=== PATIENT | female | born 1965 | race Caucasian/White ===

== ENCOUNTER 2018-04-12 13:50 | Emergency (ER) | payer MEDICAID ==
[~2018-04-12] VITALS: Ht 571.8 cm; Wt 100.0 kg
[~2018-04-12 13:50] MED LIST: ALBU8.5H8 IH; ASCO1TAB42 PO; CYAN250014 PO; DISU250T7 PO; GABA-532 PO; GEMF600T3 PO; LEVO100T PO; LORA10TA7 PO; LURA40TA3 PO; PANT40TA4 PO
[2018-04-12] MEDS ORDERED: normal saline 1000ML IV soln IVB ONE (14:10)
[2018-04-12 14:41] LABS: ALANINE AMINOTRANSFERASE 28 U/L (12-78); ALBUMIN 3.3 G/DL (3.4-5.0); ALBUMIN/GLOBULIN RATIO 0.9 (1.1-1.5); ALKALINE PHOSPHATASE 91 IU/L (46-116); ANION GAP 14 (8-16); ASPARTATE AMINO TRANSFERASE 76 U/L (10-37); BILIRUBIN,TOTAL 0.2 MG/DL (0.1-1.0); BLOOD UREA NITROGEN 19 MG/DL (7-18); BUN/CREATININE RATIO 19.6 (6.6-38.0); CALCIUM 8.9 MG/DL (8.5-10.1); CHLORIDE 99 MMOL/L (99-107); CREATININE 0.97 MG/DL (0.40-0.90); ETHANOL 0.117 GM/DL (0.0-0.010); GLUCOSE 94 MG/DL (70-104); POTASSIUM 3.1 MMOL/L (3.5-5.1); SODIUM 138 MMOL/L (135-145); TOTAL CARBON DIOXIDE 25.1 MMOL/L (24-32); TOTAL PROTEIN 7.1 G/DL (6.4-8.2); eGFR 60 ML/MIN
[2018-04-12 14:43] LABS: BASOPHILS % (AUTO) 0.3 % (0-1); EOSINOPHILS % (AUTO) 0.1 % (0-6); HEMATOCRIT 40.7 % (35.0-45.0); LYMPHOCYTES # (AUTO) 0.9 X10'3 (1.1-4.8); LYMPHOCYTES % (AUTO) 12.5 % (21-51); MEAN CORPUSCULAR HEMOGLOBIN 30.7 PG (27.0-31.0); MEAN CORPUSCULAR HGB CONC 34.5 % (33.0-36.5); MEAN CORPUSCULAR VOLUME 88.9 FL (78-98); MEAN PLATELET VOLUME 8.2 FL (7.4-10.4); MONOCYTES # (AUTO) 0.4 X10'3 (0-0.9); MONOCYTES % (AUTO) 5.5 % (2-12); NEUTROPHILS % (AUTO) 81.6 % (42-75); PLATELET COUNT 211 X10'3 (140-440); RED BLOOD COUNT 4.57 X10'6 (4.20-5.60); RED CELL DISTRIBUTION WIDTH 13.4 % (11.5-14.5); WHITE BLOOD COUNT 7.3 X10'3 (4.5-11.0)
[2018-04-12 15:15] LABS: CLARITY,URINE CLOUDY (Clear); COLOR,URINE YELLOW (Yellow); GLUCOSE, URINE NEGATIVE (Neg); KETONES,URINE NEGATIVE (Neg); LEUKOCYTE ESTERASE ,URINE LARGE (Neg); NITRITES, URINE POSITIVE (Neg); OCCULT BLOOD,URINE SMALL (Neg); PROTEIN,URINE TRACE mg/dl (Neg); UROBILINOGEN,URINE 0.2 E.U/dL (0.2-1.0)
[2018-04-12 15:16] LABS: UA COLLECTION TYPE STRAIGHT CATH
[2018-04-12 15:21] LABS: SQUAMOUS EPITHELIAL CELL,UR FEW /LPF (FEW); WBC,URINE TNTC /HPF (0-4)
[2018-04-12 15:22] LABS: BACTERIA,URINE 4+ /HPF (Neg)
[2018-04-12] MEDS ORDERED: potassium Cl oral solution 20 MEQ/15 ML PO ONE (15:25)
[2018-04-12] MEDS ORDERED: CefTRIAXone 2gm/D5W 50ml 50 ML IV ONE (15:25)
[2018-04-12 15:28] LABS: URINE AMPHETAMINE SCREEN NEGATIVE (Neg); URINE BARBITUATE SCREEN NEGATIVE (Neg); URINE BENZODIAZEPINES SCREEN POSITIVE (Neg); URINE CANNABINOID SCREEN NEGATIVE (Neg); URINE COCAINE SCREEN NEGATIVE (Neg); URINE METHADONE SCREEN NEGATIVE (Neg); URINE OPIATE SCREEN NEGATIVE (Neg); URINE PHENCYCLIDINE SCREEN NEGATIVE (Neg)
[2018-04-12] MEDS ORDERED: NITR100C6 PO (15:53)
[2018-04-12] MEDS ORDERED: proCHLORperazine 10 MG/2 ml inj IV ONE (16:15)
[2018-04-12 16:45] VITALS: BP 182/103
== END 2018-04-12 16:47 | disposition home or self-care (01) ==
LOC: ER 13:50
DX: R41.82 Altered mental status, unspecified (principal); F10.129 Alcohol abuse with intoxication, unspecified; N39.0 Urinary tract infection, site not specified; E87.6 Hypokalemia; G43.909 Migraine, unspecified, not intractable, without status migrainosus; E78.00 Pure hypercholesterolemia, unspecified; M19.90 Unspecified osteoarthritis, unspecified site; Z88.6 Allergy status to analgesic agent; Z88.8 Allergy status to other drugs, medicaments and biological substances; Z96.653 Presence of artificial knee joint, bilateral
CPT/HCPCS: 36415; 70450; 71045; 72125; 80053; 80305; 80320; 81001; 82140; 85025; 87077; 87088; 87186; 93005; 96365; 96375; 99285; A4353; J0696; J0780; J7030; 96361

== ENCOUNTER 2018-07-10 10:02 | Outpatient (CLI) | payer MEDICAID ==
[2018-07-10 10:01] VITALS: BP 139/76
[~2018-07-10 10:02] MED LIST changes: -GEMF600T3 PO; +GEMF600T4 PO; +HYDR-3965 PO; +NITR100C6 PO; +ONDA4TAB9 PO
== END 2018-07-10 10:42 | disposition home or self-care (01) ==
LOC: ORTHO 10:02
PROVIDERS: ATTEND Nurse Practitioner Family
DX: S62.616A Displaced fracture of proximal phalanx of right little finger, initial encounter for closed fracture (principal); M19.041 Primary osteoarthritis, right hand; F17.210 Nicotine dependence, cigarettes, uncomplicated; G43.909 Migraine, unspecified, not intractable, without status migrainosus; Z56.0 Unemployment, unspecified; Z72.89 Other problems related to lifestyle; Z96.643 Presence of artificial hip joint, bilateral; Z90.710 Acquired absence of both cervix and uterus; Z85.41 Personal history of malignant neoplasm of cervix uteri; Z88.2 Allergy status to sulfonamides; Z88.8 Allergy status to other drugs, medicaments and biological substances; W01.0XXA Fall on same level from slipping, tripping and stumbling without subsequent striking against object, initial encounter; Y93.89 Activity, other specified; Y92.89 Other specified places as the place of occurrence of the external cause; Y99.8 Other external cause status
CPT/HCPCS: 73130; 99213

== ENCOUNTER 2018-07-24 09:57 | Outpatient (CLI) | payer MEDICAID ==
[2018-07-24 09:58] VITALS: BP 144/77
== END 2018-07-24 10:56 | disposition home or self-care (01) ==
LOC: ORTHO 09:57
PROVIDERS: ATTEND Nurse Practitioner Family
DX: S62.616G Displaced fracture of proximal phalanx of right little finger, subsequent encounter for fracture with delayed healing (principal); F17.210 Nicotine dependence, cigarettes, uncomplicated; G43.909 Migraine, unspecified, not intractable, without status migrainosus; Z56.0 Unemployment, unspecified; Z72.89 Other problems related to lifestyle; Z88.2 Allergy status to sulfonamides; Z90.710 Acquired absence of both cervix and uterus; Z96.643 Presence of artificial hip joint, bilateral; W01.0XXD Fall on same level from slipping, tripping and stumbling without subsequent striking against object, subsequent encounter
CPT/HCPCS: 99212

== ENCOUNTER 2018-12-02 10:57 | Inpatient (IN) | payer MEDICAID ==
[~2018-12-02] VITALS: Ht 162.6 cm; Wt 100.0 kg
[~2018-12-02 10:57] MED LIST changes: -GEMF600T4 PO; +GEMF600T89 PO; -HYDR-3965 PO; -ONDA4TAB9 PO
[2018-12-02] MEDS ORDERED: charcoal, activated 50 GM/240 ML bottle PO ONE (11:35)
[2018-12-02] MEDS ORDERED: normal saline 1000ML IV soln IVB ONE (11:35)
--- NOTE | 2018-12-02 12:11 | NUR ---
waiting for tele psych computer that is currently is being used
[2018-12-02 12:12] LABS: CLARITY,URINE CLEAR (Clear); COLOR,URINE YELLOW (Yellow); GLUCOSE, URINE NEGATIVE (Neg); KETONES,URINE NEGATIVE (Neg); LEUKOCYTE ESTERASE ,URINE NEGATIVE (Neg); NITRITES, URINE NEGATIVE (Neg); OCCULT BLOOD,URINE NEGATIVE (Neg); PH,URINE 6.5 (4.8-8.0); PROTEIN,URINE NEGATIVE (Neg); UROBILINOGEN,URINE 0.2 E.U/dL (0.2-1.0)
[2018-12-02 12:14] LABS: BASOPHILS % (AUTO) 0.1 % (0-1); EOSINOPHILS # (AUTO) 0.2 X10'3 (0-0.9); EOSINOPHILS % (AUTO) 4.4 % (0-6); HEMATOCRIT 40.6 % (35.0-45.0); HEMOGLOBIN 13.8 g/dl (12.0-16.0); LYMPHOCYTES % (AUTO) 40.8 % (21-51); MEAN CORPUSCULAR HEMOGLOBIN 30.1 PG (27.0-31.0); MEAN CORPUSCULAR HGB CONC 33.9 % (33.0-36.5); MEAN CORPUSCULAR VOLUME 88.7 FL (78-98); MONOCYTES # (AUTO) 0.2 X10'3 (0-0.9); MONOCYTES % (AUTO) 4.9 % (2-12); NEUTROPHILS # (AUTO) 2.4 X10'3 (1.8-7.7); NEUTROPHILS % (AUTO) 49.8 % (42-75); PLATELET COUNT 292 X10'3 (140-440); RED BLOOD COUNT 4.57 X10'6 (4.20-5.60); RED CELL DISTRIBUTION WIDTH 13.8 % (11.5-14.5); WHITE BLOOD COUNT 4.9 X10'3 (4.5-11.0)
[2018-12-02 12:15] LABS: UA COLLECTION TYPE CLN CATCH MIDSTREAM
[2018-12-02 12:36] LABS: ALBUMIN 3.6 G/DL (3.4-5.0); ANION GAP 15 (8-16); BLOOD UREA NITROGEN 12 MG/DL (7-18); BUN/CREATININE RATIO 15.6 (6.6-38.0); CALCIUM 8.4 MG/DL (8.5-10.1); CHLORIDE 112 MMOL/L (99-107); CREATININE 0.77 MG/DL (0.40-0.90); GLUCOSE 106 MG/DL (70-104); POTASSIUM 3.8 MMOL/L (3.5-5.1); SODIUM 148 MMOL/L (135-145); TOTAL CARBON DIOXIDE 21.5 MMOL/L (24-32); eGFR 78 ML/MIN
[2018-12-02 12:47] LABS: ACETAMINOPHEN < 2.0 UG/ML (10-30)
[2018-12-02] MEDS ORDERED: HYDROmorphone inj. 0.5 MG/0.5 ML DISP.SYRIN IV PRN (13:10)
[2018-12-02] MEDS ORDERED: acetaminophen 325mg tablet PO PRN (13:10)
[2018-12-02] MEDS ORDERED: bisacodyl 10mg suppository rectal RC PRN (13:10)
[2018-12-02] MEDS ORDERED: HYDROmorphone 1 mg/ml syringe IV PRN (13:10)
[2018-12-02] MEDS ORDERED: ondansetron/PF 4mg/2ml inj IV PRN (13:10)
[2018-12-02] MEDS ORDERED: HYDROcodone/acetaminophen 5mg/325mg tablet PO PRN (13:10)
[2018-12-02] MEDS ORDERED: diphenhydrAMINE 25mg capsule PO PRN (13:10)
[2018-12-02 13:58] VITALS: BP 113/68
[2018-12-02] MEDS ORDERED: CYAN100097 PO (14:51)
--- NOTE | 2018-12-02 14:53 | NUR ---
PT LEFT AMA. PT WAS NOT ON A HOLD OR 5150. PT INFORMED OF RISK EFFECTS OF LEAVING AMA. PT DC HER OWN IV. PT WAS FOUND IN THE BUS STOP SMOKING. CHARGE NURSE AWARE
[2018-12-02] MEDS ORDERED: TRAM50TA2 PO (15:05)
[2018-12-02] MEDS ORDERED: CYCL10TA26 PO (15:07)
[2018-12-02] MEDS ORDERED: ATOR-2 PO (15:08)
[2018-12-02] MEDS ORDERED: TRAZ-218 PO (15:09)
--- NOTE | 2018-12-02 15:12 | NUR ---
PT LEFT NON-LABLED ALLERGY MEDICINE AND ASA, MEDS DISCARDED IN MED WASTE
[2018-12-02] MEDS ORDERED: heparin, porcine 5000 units/ml vial SQ SCH (20:00)
[2018-12-02] MEDS ORDERED: GABAPENTIN 300 MG CAPSULE ×2 (21:27→22:23)
[2018-12-02] MEDS ORDERED: GEMFIBROZIL 600 MG TABLET ×2 (21:27→22:23)
[2018-12-02] MEDS ORDERED: PANTOPRAZOLE SOD DR 40 MG TAB ×2 (21:27→22:23)
[2018-12-02] MEDS ORDERED: LATUDA 40 MG ×2 (21:27→22:23)
[2018-12-02] MEDS ORDERED: TRAMADOL HCL 50 MG TABLET ×2 (21:27→22:23)
[2018-12-02] MEDS ORDERED: LEVOTHYROXINE 100 MCG TABLET ×2 (21:27→22:23)
[2018-12-02] MEDS ORDERED: TRAZODONE 100 MG TABLET (21:27)
[2018-12-02] MEDS ORDERED: ATORVASTATIN 80 MG TABLET (21:27)
[2018-12-02] MEDS ORDERED: CYCLOBENZAPRINE 10 MG TABLET ×2 (21:27→22:23)
[2018-12-02] MEDS ORDERED: LORATADINE 10 MG TABLET ×2 (21:27→22:23)
[2018-12-03] MEDS ORDERED: DESV50TA PO (13:54)
== END 2018-12-02 16:15 | disposition left against medical advice (07) | DRG 812 ==
LOC: ER 10:58 → ED HOLD 13:06 → CANBEDREQ 14:57
PROVIDERS: ADMIT Internal Medicine Critical Care Medicine; ATTEND Internal Medicine Critical Care Medicine
DX: T39.011A Poisoning by aspirin, accidental (unintentional), initial encounter (principal); F33.2 Major depressive disorder, recurrent severe without psychotic features; Z96.653 Presence of artificial knee joint, bilateral; E78.00 Pure hypercholesterolemia, unspecified; G47.30 Sleep apnea, unspecified; Z53.21 Procedure and treatment not carried out due to patient leaving prior to being seen by health care provider; G43.909 Migraine, unspecified, not intractable, without status migrainosus; G89.29 Other chronic pain; M54.9 Dorsalgia, unspecified; Z87.11 Personal history of peptic ulcer disease; Y92.89 Other specified places as the place of occurrence of the external cause; Z90.710 Acquired absence of both cervix and uterus; Z88.8 Allergy status to other drugs, medicaments and biological substances
CPT/HCPCS: 36415; 80048; 80320; 80329; 81003; 85025; 93005; 99285; G0378

== ENCOUNTER 2018-12-02 17:14 | Emergency (ER) | payer MEDICAID ==
[~2018-12-02] VITALS: Ht 172.7 cm; Wt 85.0 kg
[~2018-12-02 17:14] MED LIST changes: +ATOR-2 PO; +CYAN100097 PO; +CYCL10TA26 PO; +TRAM50TA2 PO; +TRAZ-218 PO
[2018-12-02 17:49] LABS: BASOPHILS % (AUTO) 0.6 % (0-1); EOSINOPHILS # (AUTO) 0.1 X10'3 (0-0.9); EOSINOPHILS % (AUTO) 3.4 % (0-6); HEMATOCRIT 41.4 % (35.0-45.0); LYMPHOCYTES # (AUTO) 1.6 X10'3 (1.1-4.8); LYMPHOCYTES % (AUTO) 38.3 % (21-51); MEAN CORPUSCULAR HGB CONC 33.9 % (33.0-36.5); MEAN CORPUSCULAR VOLUME 88.6 FL (78-98); MEAN PLATELET VOLUME 6.9 FL (7.4-10.4); MONOCYTES # (AUTO) 0.2 X10'3 (0-0.9); MONOCYTES % (AUTO) 5.6 % (2-12); NEUTROPHILS # (AUTO) 2.2 X10'3 (1.8-7.7); NEUTROPHILS % (AUTO) 52.1 % (42-75); PLATELET COUNT 305 X10'3 (140-440); RED BLOOD COUNT 4.67 X10'6 (4.20-5.60); RED CELL DISTRIBUTION WIDTH 14.2 % (11.5-14.5); WHITE BLOOD COUNT 4.3 X10'3 (4.5-11.0)
[2018-12-02 18:06] LABS: ALANINE AMINOTRANSFERASE 36 U/L (12-78); ALBUMIN 3.8 G/DL (3.4-5.0); ALKALINE PHOSPHATASE 124 IU/L (46-116); ANION GAP 17 (8-16); ASPARTATE AMINO TRANSFERASE 26 U/L (10-37); BILIRUBIN,TOTAL 0.2 MG/DL (0.1-1.0); BLOOD UREA NITROGEN 12 MG/DL (7-18); CALCIUM 8.3 MG/DL (8.5-10.1); CHLORIDE 108 MMOL/L (99-107); CREATININE 0.75 MG/DL (0.40-0.90); ETHANOL 0.207 GM/DL (0.0-0.010); GLUCOSE 109 MG/DL (70-104); POTASSIUM 3.6 MMOL/L (3.5-5.1); SODIUM 146 MMOL/L (135-145); TOTAL CARBON DIOXIDE 20.7 MMOL/L (24-32); TOTAL PROTEIN 7.5 G/DL (6.4-8.2); eGFR 81 ML/MIN
--- NOTE | 2018-12-02 18:26 | NUR ---
POISION CONTROL CALLED, RECOMMENDATION GIVEN TO PA
[2018-12-02 18:29] LABS: ACETAMINOPHEN < 2.0 UG/ML (10-30)
[2018-12-02] MEDS ORDERED: normal saline 1000ml 1,000 ML IV ONE (18:36)
[2018-12-02] MEDS ORDERED: potassium chloride 10mEq CAPSULE.SA PO STA (18:36)
[2018-12-02] MEDS ORDERED: sodium bicarbonate (8.4%) 1 mEq/ml syringe IV ONE (18:40)
[2018-12-02] MEDS ORDERED: potassium chloride 10mEq ER tablet PO ONE (18:50)
--- NOTE | 2018-12-02 19:19 | NUR ---
Pt transferred from ed8 to of26 via [facility] escort by Surjit MANCILLA
--- NOTE | 2018-12-02 19:23 | NUR ---
SOC Psychiatrist f/u indicating [facility] is being recommended. He will include medication recommendations also. Primary RN Aaron notified.
--- NOTE | 2018-12-02 19:34 | NUR ---
Jesus gaston in [facility] - 12/02/18 at 1935 by MARCK pt on phone calling his mom and friends
--- NOTE | 2018-12-02 20:25 | NUR ---
pt requesting pain med for back pain. informed dr. stratton. dr would like the asa level to trend down before she gets any pain med.
--- NOTE | 2018-12-02 20:27 | NUR ---
let pt know dr would like asa level to come down before any pain med given. pt was ok with that
[2018-12-02 21:21] LABS: ALANINE AMINOTRANSFERASE 32 U/L (12-78); ALBUMIN 3.3 G/DL (3.4-5.0); ALKALINE PHOSPHATASE 107 IU/L (46-116); ANION GAP 15 (8-16); ASPARTATE AMINO TRANSFERASE 27 U/L (10-37); BILIRUBIN,TOTAL 0.2 MG/DL (0.1-1.0); BLOOD UREA NITROGEN 12 MG/DL (7-18); BUN/CREATININE RATIO 17.4 (6.6-38.0); CALCIUM 8.1 MG/DL (8.5-10.1); CHLORIDE 108 MMOL/L (99-107); CREATININE 0.69 MG/DL (0.40-0.90); GLUCOSE 96 MG/DL (70-104); POTASSIUM 3.5 MMOL/L (3.5-5.1); SODIUM 148 MMOL/L (135-145); TOTAL CARBON DIOXIDE 24.9 MMOL/L (24-32); TOTAL PROTEIN 6.5 G/DL (6.4-8.2); eGFR 89 ML/MIN
--- NOTE | 2018-12-02 21:23 | NUR ---
Pt packet faxed to [facility]
[2018-12-02] MEDS ORDERED: GABAPENTIN 300 MG CAPSULE ×2 (21:27→22:23)
[2018-12-02] MEDS ORDERED: CYCLOBENZAPRINE 10 MG TABLET ×2 (21:27→22:23)
[2018-12-02] MEDS ORDERED: TRAMADOL HCL 50 MG TABLET ×2 (21:27→22:23)
[2018-12-02] MEDS ORDERED: TRAZODONE 100 MG TABLET (21:27)
[2018-12-02] MEDS ORDERED: LORATADINE 10 MG TABLET ×2 (21:27→22:23)
[2018-12-02] MEDS ORDERED: LEVOTHYROXINE 100 MCG TABLET ×2 (21:27→22:23)
[2018-12-02] MEDS ORDERED: GEMFIBROZIL 600 MG TABLET ×2 (21:27→22:23)
[2018-12-02] MEDS ORDERED: LATUDA 40 MG ×2 (21:27→22:23)
[2018-12-02] MEDS ORDERED: PANTOPRAZOLE SOD DR 40 MG TAB ×2 (21:27→22:23)
[2018-12-02] MEDS ORDERED: ATORVASTATIN 80 MG TABLET (21:27)
[2018-12-02 21:53] LABS: URINE AMPHETAMINE SCREEN NEGATIVE (Neg); URINE BARBITUATE SCREEN NEGATIVE (Neg); URINE BENZODIAZEPINES SCREEN NEGATIVE (Neg); URINE CANNABINOID SCREEN NEGATIVE (Neg); URINE COCAINE SCREEN NEGATIVE (Neg); URINE METHADONE SCREEN NEGATIVE (Neg); URINE OPIATE SCREEN NEGATIVE (Neg); URINE PHENCYCLIDINE SCREEN NEGATIVE (Neg)
--- NOTE | 2018-12-02 22:37 | NUR ---
informed dr. stratton that pt wears cpap at night. please see new orders
[2018-12-02] MEDS: lurasidone 20mg tablet PO SCH (23:32)
[2018-12-02] MEDS: cyclobenzaprine 10mg tablet PO PRN (23:32)
[2018-12-02] MEDS: pantoprazole 40mg Tablet.DR PO SCH (23:33)
[2018-12-02] MEDS: atorvastatin 20mg tablet PO SCH (23:33)
[2018-12-02] MEDS: gemfibrozil 600mg tablet PO SCH (23:34)
[2018-12-02] MEDS: traMADol 50MG tablet PO SCH (23:34)
[2018-12-02] MEDS: traZODone 50mg tablet PO SCH (23:34)
[2018-12-03 00:08] LABS: ALBUMIN 3.3 G/DL (3.4-5.0); ANION GAP 14 (8-16); BLOOD UREA NITROGEN 12 MG/DL (7-18); BUN/CREATININE RATIO 17.4 (6.6-38.0); CALCIUM 8.2 MG/DL (8.5-10.1); CHLORIDE 107 MMOL/L (99-107); CREATININE 0.69 MG/DL (0.40-0.90); GLUCOSE 85 MG/DL (70-104); POTASSIUM 3.4 MMOL/L (3.5-5.1); SODIUM 144 MMOL/L (135-145); TOTAL CARBON DIOXIDE 23.3 MMOL/L (24-32); eGFR 89 ML/MIN
--- NOTE | 2018-12-03 01:33 | NUR ---
brenden from poison control called and was given an update on last blood draw. recommends ekg, to make sure its normal.
--- NOTE | 2018-12-03 01:36 | NUR ---
informed dr. allen of request for ekg from don at poison control. she will order ekg.
--- NOTE | 2018-12-03 02:20 | NUR ---
Pt resting quietly on back. RR 14, even and unlabored with cpap in place. no apparent distress @ this time.
[2018-12-03 02:42] LABS: CLARITY,URINE CLEAR (Clear); COLOR,URINE YELLOW (Yellow); GLUCOSE, URINE NEGATIVE (Neg); KETONES,URINE NEGATIVE (Neg); LEUKOCYTE ESTERASE ,URINE NEGATIVE (Neg); NITRITES, URINE NEGATIVE (Neg); OCCULT BLOOD,URINE NEGATIVE (Neg); PH,URINE 7.5 (4.8-8.0); PROTEIN,URINE NEGATIVE (Neg); UROBILINOGEN,URINE 0.2 E.U/dL (0.2-1.0)
[2018-12-03 02:43] LABS: UA COLLECTION TYPE CLN CATCH MIDSTREAM
--- NOTE | 2018-12-03 05:00 | NUR ---
pt resting comfortably on her right hip. no signs of distress noted. will continue to monitor.
--- NOTE | 2018-12-03 06:39 | NUR ---
PT SLEEPING ON LEFT SIDE. NO RESTLESSNESS/DISTRESS OBSERVED. CONTIUE TO MONITOR.
[2018-12-03] MEDS ORDERED: loratadine 10mg tablet PO SCH (08:00)
[2018-12-03] MEDS ORDERED: gabapentin 300mg capsule PO SCH (08:00)
[2018-12-03] MEDS ORDERED: levoTHYROXINE 100mcg tablet PO SCH (08:00)
--- NOTE | 2018-12-03 08:25 | NUR ---
Patient speaking to Daniela from [facility]. Continue to monitor.
[2018-12-03] MEDS: pantoprazole 40mg Tablet.DR PO SCH ×2 (09:12→20:25)
[2018-12-03] MEDS: traMADol 50MG tablet PO SCH ×3 (09:12→20:27)
[2018-12-03] MEDS: gemfibrozil 600mg tablet PO SCH ×2 (09:12→20:31)
--- NOTE | 2018-12-03 10:43 | NUR ---
Patient sleeping on right side. No distress observed. Continue to monitor.
--- NOTE | 2018-12-03 12:31 | NUR ---
pt is sleeping supine in bed, no s/s of distress noted, even, spontaineous breathing
--- NOTE | 2018-12-03 12:49 | NUR ---
pt up at the desk requesting lunch, was told it would be here in about 20 mins
[2018-12-03] MEDS ORDERED: nicotine 21mg patch - 24 hr TD SCH (13:15)
[2018-12-03] MEDS ORDERED: DESV50TA PO (13:54)
[2018-12-03] MEDS ORDERED: LORazepam 1 MG tablet PO PRN (15:20)
[2018-12-03] MEDS: LORazepam 0.5 MG tablet PO PRN ×2 (16:08→21:44)
--- NOTE | 2018-12-03 18:51 | NUR ---
Pt. laying in bed, calm, rr even and ulabored at this time
[2018-12-03] MEDS: traZODone 50mg tablet PO SCH (20:25)
[2018-12-03] MEDS: atorvastatin 20mg tablet PO SCH (20:26)
[2018-12-03] MEDS: lurasidone 20mg tablet PO SCH (20:26)
[2018-12-03] MEDS: cyclobenzaprine 10mg tablet PO PRN (20:27)
--- NOTE | 2018-12-03 21:34 | NUR ---
Pt. presents as calm and continues to lay in bed. She denies S/I, however reports ongoing depression and anxiety r/t marital problems, states, "My has been contemplating divorce." Also, r/t chronic binge drinking. Pt. reports she would like to quit and is experiencing some s/s of withdraw AEB tremors, however PRN Ativan administered with effectiveness. V/S are stable and pt. denies any n/v. Pt. compliant with all medications and requests PRN Flexeril per chronic back pain, reports she has two bludging discs. 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 She is followed by die setter Carissa Fontenot, at [facility]. C-pap in place and pt resting comfortably.
--- NOTE | 2018-12-03 22:14 | NUR ---
Pt. has been accepted at [facility], she is in agreeance with this plan. D/C paperwork completed and Tech from [facility] at bedside inventoring pt. belongings. Pt. administered PRN ativan per anxiety r/t transfer with effectiveness. RR even and unlabored.
[2018-12-03 22:25] VITALS: BP 143/76
--- NOTE | 2018-12-04 14:25 | NUR ---
SPOUSE CALLED FOR PT, XFERED CALLER TO [facility] EXT [id number]
== END 2018-12-03 22:34 | disposition home or self-care (01) ==
LOC: ER 17:14
DX: T39.012A Poisoning by aspirin, intentional self-harm, initial encounter (principal); F10.10 Alcohol abuse, uncomplicated; G43.909 Migraine, unspecified, not intractable, without status migrainosus; E78.00 Pure hypercholesterolemia, unspecified; G89.29 Other chronic pain; M54.5 Low back pain; M19.90 Unspecified osteoarthritis, unspecified site; Z88.6 Allergy status to analgesic agent; Z88.8 Allergy status to other drugs, medicaments and biological substances; Z90.710 Acquired absence of both cervix and uterus; Z56.0 Unemployment, unspecified; Z96.653 Presence of artificial knee joint, bilateral; Y92.89 Other specified places as the place of occurrence of the external cause; Y90.9 Presence of alcohol in blood, level not specified
CPT/HCPCS: 36415; 80048; 80053; 80305; 80320; 80329; 81003; 84443; 85025; 93005; 94660; 94760; 99285; J3420; J7030

== ENCOUNTER 2018-12-03 20:20 | Inpatient (IN) | payer MEDICAID ==
[~2018-12-03] VITALS: Ht 162.6 cm; Wt 97.0 kg
[~2018-12-03 20:20] MED LIST changes: -ALBU8.5H8 IH; -ASCO1TAB42 PO; -CYAN250014 PO; +CYCLOBENZAPRINE 10 MG TABLET; +DESV50TA PO; -DISU250T7 PO; +GABAPENTIN 300 MG CAPSULE; +GEMFIBROZIL 600 MG TABLET; +LATUDA 40 MG; +LEVOTHYROXINE 100 MCG TABLET; +LORATADINE 10 MG TABLET; -NITR100C6 PO; +PANTOPRAZOLE SOD DR 40 MG TAB; +TRAMADOL HCL 50 MG TABLET
[2018-12-03] MEDS ORDERED: acetaminophen 325mg tablet PO PRN ×2 (21:46)
[2018-12-03] MEDS ORDERED: mag hydrox/Alum hydrox/simeth 30ml oral suspension PO PRN (21:46)
[2018-12-03] MEDS ORDERED: magnesium hydroxide 30ml (MOM) UD suspension PO PRN (21:46)
[2018-12-03] MEDS ORDERED: LORazepam 1 MG tablet PO PRN (22:10)
[2018-12-03 22:45] VITALS: BP 152/79
--- NOTE | 2018-12-04 00:17 | NUR ---
ADMIT NOTE Chief Complaint: Suicide attempt aspirin overdose Legal hold:5150 danger to self Client on involuntary status for DTS. Report received from ER with use of SBAR. Why are they here: 5150 hold for overdose on aspirin. Diagnosis/presenting symptoms: Pt was brought to ER by EMS for Aspirin overdose. She eloped from ER and took a bus home. Per pt's she did not know she was on a hold so when felt better so she just left. Per ER Docs note "Patient ended up getting upset and ripped her IV out per nurse and left the emergency room." Pt returned home the called the police and the police took her back to ER in handcuffs on a 5150. Pt is vague on the details of events because as she admits she had been drinking. In fact the pt had started drinking on Sunday am and was incredulous to find it was Sunday night. She admits she has lost a whole day. Pt is minimizing the seriousness of her OD attempt. She denies ever wanting to kill herself. Verbalized she does not need to be on a hold. Pt has been in our ER seven times for deliberate aspirin overdose. Assessment What has happened this shift: Pt alert oriented, pleasant and cooperative with admit process. Wants to go home by Dec 09 for granddaughters birthday. Independent ADLs Pt has long history of ETOH abuse describes herself as "Binge Drinker". Pt became tearful when she talked about how destructive her drinking has been to her life and how hard it is to quit. Her relationship with her children has suffered and her wants to divorce her. Pt reports a long history of depression, at one time was diagnosed bipolar but the pt believes that is incorrect. Pt denies any history of physical emotional or sexual abuse. S/I, H/I: Denies A/VH: Denies Sleep: after admit complete pt went immediately to sleep ADL's: Independent Group attendance:NA Were meds taken: NA Any med S/E no Mental Status Exam Appearance: Eye contact: Good Behavior: Calm cooperative Speech: Clear Mood: Tearful at time Affect: Sad Thought process: Logical Thought Content: Wants to go home Cognition: Good Insight: Fair Judgment: Fair Interventions Admit assessment. 1:1 assessment of mood and cognition. Active listening Oriented to unit process for legal hod. Smoking cessation info and counseling provided. PRN's used: no Therapeutic interventions: Restraints/seclusion/emergency medication: NA Justification of Continued Inpatient Treatment: Pt is danger to self multiple drug overdose attempts. Need Psychiatric stabilization for depression and medication adjustments.
[2018-12-04 08:00] VITALS: BP 131/86
[2018-12-04 08:04] LABS: HEMOGLOBIN A1C 5.8 % (4.5-6.2)
[2018-12-04] MEDS: levoTHYROXINE 100mcg tablet PO SCH (08:05)
[2018-12-04] MEDS: loratadine 10mg tablet PO SCH (08:05)
[2018-12-04] MEDS: gabapentin 300mg capsule PO SCH (08:05)
[2018-12-04 08:06] LABS: CHOL/HDL RATIO 3.3 (0.00-4.99); CHOLESTEROL 124 MG/DL (0-200); HDL CHOLESTEROL 38 MG/DL (35-60); LDL CHOLESTEROL 57 MG/DL (50-100); TRIGLYCERIDES 336 MG/DL (20-135)
[2018-12-04] MEDS: cyanocobalamin 500mcg tablet PO SCH (08:06)
[2018-12-04] MEDS: pantoprazole 40mg Tablet.DR PO SCH ×2 (08:06→20:06)
[2018-12-04] MEDS: traMADol 50MG tablet PO SCH ×3 (08:06→20:06)
[2018-12-04] MEDS: nicotine 21mg patch - 24 hr TD SCH (08:07)
[2018-12-04] MEDS: gemfibrozil 600mg tablet PO SCH ×2 (08:49→20:05)
[2018-12-04] MEDS: LORazepam 0.5 MG tablet PO PRN ×2 (08:49→19:54)
[2018-12-04] MEDS ORDERED: tuberculin, purif. prot. deriv. 5 units/0.1ml ID ONE (10:00)
[2018-12-04] MEDS ORDERED: LORazepam 0.5 MG tablet PO ONE (13:00)
--- NOTE | 2018-12-04 16:56 | NUR ---
ADMIT NOTE Chief Complaint: Suicide attempt aspirin overdose Legal hold:5150 danger to self Client on involuntary status for DTS. Report received from ER with use of SBAR. Why are they here: 5150 hold for overdose on aspirin. Diagnosis/presenting symptoms: Pt was brought to ER by EMS for Aspirin overdose. She eloped from ER and took a bus home. Per pt's she did not know she was on a hold so when felt better so she just left. Per ER Docs note "Patient ended up getting upset and ripped her IV out per nurse and left the emergency room." Pt returned home the called the police and the police took her back to ER in handcuffs on a 5150. Pt is vague on the details of events because as she admits she had been drinking. In fact the pt had started drinking on Sunday am and was incredulous to find it was Sunday night. She admits she has lost a whole day. Pt is minimizing the seriousness of her OD attempt. She denies ever wanting to kill herself. Verbalized she does not need to be on a hold. Pt has been in our ER seven times for deliberate aspirin overdose. Assessment What has happened this shift: Patient is met in the rivera at shift change. She states that she is feeling anxious and begins to cry. She requests PRN ativan, RN administered as prescribed. She states that she did not sleep well last night. She reports back pain at a 7/10. Patient takes all medications without issue. Patient states that she is not suicidal. She reports that she is a binge drinker and it has ruined her life. She tearfully states I dont want to lose my family and I dont want to lose my . She says that she would like to enroll in [employer] from [employer] and that she would like to be home by December 09 for her granddaughters birthday. Patient reports that she usually takes Pristiq (unknown dose) and Latuda 80mg. At 0800, patient reports increased anxiety, PRN ativan administered as directed. Patient reports increased anxiety again at 1300 stating My insides feel all messed up, Im jsut a mess. RN consult with doctor Bernabe, kirill provdided for Ativan 1mg one time now. RN administered as ordered. Rosanna meets with doctor and then talks with her . She states that the conversations went well and she feels hopeful that she will get the help she needs. PPD left placed in patients LFA at 1630. S/I, H/I: Denies A/VH: Denies Sleep: reports not sleeping well ADL's: Independent Group attendance: yes Were meds taken: yes Any med S/E no Mental Status Exam Appearance: appropriate Eye contact: direct Behavior: cooperative, ashamed Speech: Clear, soft tone, normal rate/rythm Mood: shamed, regrettful Affect: appropriate to mood Thought process: Linear Thought Content: Wants to go home Cognition: Good Insight: Fair Judgment: Fair Interventions: PRN's used: None Therapeutic interventions: 1:1 therapeutic conversation with RN that included active listening, positive reinforcement, q15" safety checks. Restraints/seclusion/emergency medication: None Justification of Continued Inpatient Treatment: Continued therapeutic support and medication management needed to provide stabilization, prevent decompensation, decreasing risk to patient and readmittance.
[2018-12-04 20:00] VITALS: BP 148/99
[2018-12-04] MEDS: atorvastatin 20mg tablet PO SCH (20:05)
[2018-12-04] MEDS: traZODone 50mg tablet PO SCH (20:06)
[2018-12-04] MEDS: lurasidone 20mg tablet PO SCH (20:07)
[2018-12-04 21:23] VITALS: BP 148/99
--- NOTE | 2018-12-05 00:23 | NUR ---
RN Progress Note Chief Complaint: Suicide attempt aspirin overdose Legal hold:5150 danger to self Client on involuntary status for DTS. Report received from [facility] with use of SBAR. Why are they here: 5150 hold for overdose on aspirin. Diagnosis/presenting symptoms: Pt was brought to ER by EMS for Aspirin overdose. She eloped from ER and took a bus home. Per pt's she did not know she was on a hold so when felt better so she just left. Per ER Docs note "Patient ended up getting upset and ripped her IV out per nurse and left the emergency room." Pt returned home the called the police and the police took her back to ER in handcuffs on a 5150. Pt is vague on the details of events because as she admits she had been drinking. In fact the pt had started drinking on Sunday am and was incredulous to find it was Sunday night. She admits she has lost a whole day. Pt is minimizing the seriousness of her OD attempt. She denies ever wanting to kill herself. Verbalized she does not need to be on a hold. Pt has been in our ER seven times for deliberate aspirin overdose. Assessment What has happened this shift: Pt was lying in bed at the start of the shift, and then got up to visit with and then returned to bed. Pt tearful and anxious after the visit, pt states her is encouraging to stay as long as needed to help come up with a good plan and ensure pt is stable, pt upset by this as she was hoping to be at home in time for her granddaughters birthday. We discussed the importance of her being here, I encouraged pt to write down some of her triggers for drinking, as well as some things she can do to cope as an alternative. Pt did state that sometimes she doesn't even need a reason to drink, but once she starts she is unable to stop. Pt is ashamed of how her drinking is effecting her family and their reputation in their community. Pt requested a PRN Ativan for anxiety which was helpful. brought in pts CPAP from home. Pt took her evening meds and then went to sleep, she appears to be resting without problems during checks. S/I, H/I: Denies A/VH: Denies Sleep: appears to be sleeping well at this time ADL's: Independent Group attendance: no groups scheduled this shift Were meds taken: yes Any med S/E no Mental Status Exam Appearance: WNL Eye contact: good Behavior: cooperative, isolative Speech: WNL Mood: depressed, anxious Affect: depressed, tearful Thought process: Linear Thought Content: WNL, no delusions/no hallucinations Cognition: WNL Insight: Fair Judgment: Fair Interventions: PRN's used: Ativan Therapeutic interventions: 1:1,assessment, q15 safety checks, encouraged pt to write down triggers for ETOH use/ and alternate coping skills, therapeutic support given. Restraints/seclusion/emergency medication: None Justification of Continued Inpatient Treatment: Pt with recent OD attempt on ASA, needs further stabilization and would be at high risk if discharged at this time due to hx of multiple S/A.
[2018-12-05] MEDS: cyanocobalamin 500mcg tablet PO SCH (07:29)
[2018-12-05] MEDS: levoTHYROXINE 100mcg tablet PO SCH (07:29)
[2018-12-05] MEDS: pantoprazole 40mg Tablet.DR PO SCH ×2 (07:30→19:50)
[2018-12-05] MEDS: gabapentin 300mg capsule PO SCH (07:30)
[2018-12-05] MEDS: gemfibrozil 600mg tablet PO SCH ×2 (07:30→19:50)
[2018-12-05] MEDS: loratadine 10mg tablet PO SCH (07:30)
[2018-12-05] MEDS: traMADol 50MG tablet PO SCH ×3 (07:30→20:54)
[2018-12-05] MEDS: nicotine 21mg patch - 24 hr TD SCH (07:35)
[2018-12-05 07:52] VITALS: BP 107/61
[2018-12-05 08:17] LABS: ALANINE AMINOTRANSFERASE 38 U/L (12-78); ALBUMIN 3.9 G/DL (3.4-5.0); ALBUMIN/GLOBULIN RATIO 1.1 (1.1-1.5); ALKALINE PHOSPHATASE 131 IU/L (46-116); ANION GAP 10 (8-16); ASPARTATE AMINO TRANSFERASE 34 U/L (10-37); BILIRUBIN,TOTAL 0.5 MG/DL (0.1-1.0); BLOOD UREA NITROGEN 13 MG/DL (7-18); BUN/CREATININE RATIO 19.4 (6.6-38.0); CHLORIDE 102 MMOL/L (99-107); CREATININE 0.67 MG/DL (0.40-0.90); GLUCOSE 112 MG/DL (70-104); POTASSIUM 3.7 MMOL/L (3.5-5.1); SODIUM 138 MMOL/L (135-145); TOTAL CARBON DIOXIDE 26.3 MMOL/L (24-32); TOTAL PROTEIN 7.4 G/DL (6.4-8.2); eGFR > 90 ML/MIN
[2018-12-05 08:19] LABS: CALCIUM 9.2 MG/DL (8.5-10.1)
--- NOTE | 2018-12-05 09:00 | NUR ---
Nurse Note: Lab called. PT tested positive for MRSA. Explained this to pt. Pt denies ever having it before. Encouraged pt to wash hands before and after touching anything. Pt states understanding.
[2018-12-05] MEDS: LORazepam 1 MG tablet PO PRN ×3 (09:03→21:25)
--- NOTE | 2018-12-05 16:57 | NUR ---
RN Progress Note Chief Complaint: Suicide attempt aspirin overdose Legal hold: 5150 danger to self Client on involuntary status for DTS. Report received from [facility] with use of SBAR. Why are they here: 5150 hold for overdose on aspirin. Diagnosis/presenting symptoms: Pt was brought to ER by EMS for Aspirin overdose. She eloped from ER and took a bus home. Per pt's she did not know she was on a hold so when felt better so she just left. Per ER Docs note "Patient ended up getting upset and ripped her IV out per nurse and left the emergency room." Pt returned home the called the police and the police took her back to ER in handcuffs on a 5150. Pt is vague on the details of events because as she admits she had been drinking. In fact the pt had started drinking on Sunday am and was incredulous to find it was Sunday night. She admits she has lost a whole day. Pt is minimizing the seriousness of her OD attempt. She denies ever wanting to kill herself. Verbalized she does not need to be on a hold. Pt has been in our ER seven times for deliberate aspirin overdose. Assessment What has happened this shift: Patient is met in the rivera at change of shift, she requests to have her medicaitons. RN meets patient in group room to administer meds, all medications taken without issue. Marcian states that she slept well the night before. This morning she reports increased anxiety and requests Ativan, administered as prescribed. Around lunch time patient becomes tearful when discussing her feelings about what is going on. Again, she expresses great remorse and embaressment. RN provided encouragement and positive reinforcement while discussing goal building and recovery. Patient is thankful. She states that she wants to get well and has been looking for help. Patient tested positve for MRSA, handwashing education provided. Patient attends all groups and states that she is finding them useful in helping her connect. She reports increased anxiety after and requests PRN Ativan. S/I, H/I: Denies A/VH: Denies Sleep: slept well at night and rests during the day ADL's: Independent, showered and well groomed Group attendance: yes Were meds taken: yes Any med S/E no Mental Status Exam Appearance: well groomed Eye contact: direct Behavior: cooperative, embarressed, and remorseful Speech: soft tone, normal rate/rythm Mood: depressed, anxious Affect: appropriate to mood, tearful at times Thought process: Linear Thought Content: WNL, no delusions/no hallucinations Cognition: A/Oxs4 Insight: Fair to good Judgment: Fair to good Interventions: PRN's used: Ativan x2 Therapeutic interventions: 1:1,assessment, q15 safety checks, encouraged pt to write down triggers for ETOH use/ and alternate coping skills, therapeutic support given. Restraints/seclusion/emergency medication: None Justification of Continued Inpatient Treatment: Pt with recent OD attempt on ASA, needs further stabilization and would be at high risk if discharged at this time due to hx of multiple S/A. Continued therapeutic support and medication management needed to provide stabilization, prevent decompensation, decreasing risk to patient and readmittance.
[2018-12-05 19:00] VITALS: BP 128/60
[2018-12-05] MEDS ORDERED: duloxetine 30mg CAPSULE.DR PO ONE (19:05)
[2018-12-05] MEDS: NYSTATIN CREAM - 30GM TUBE TP SCH (19:50)
[2018-12-05] MEDS: lurasidone 20mg tablet PO SCH (20:53)
[2018-12-05] MEDS: atorvastatin 20mg tablet PO SCH (20:53)
[2018-12-05] MEDS: traZODone 50mg tablet PO SCH (20:53)
[2018-12-05] MEDS: cyclobenzaprine 10mg tablet PO PRN (20:54)
--- NOTE | 2018-12-05 23:21 | NUR ---
RN Progress Note Chief Complaint: Depression, Suicide attempt by aspirin overdose Legal hold: 5150 danger to self Client on involuntary status for DTS. Report received from [facility]. Why are they here: Pt was placed on 5150 for DTS due to depression and SA by aspirin overdose. Pt was brought to ER by EMS for Aspirin overdose. She eloped from ER and took a bus home. Per pt's she did not know she was on a hold so and felt better so she just left. Per ER Docs note "Patient ended up getting upset and ripped her IV out per nurse and left the emergency room." Pt returned home the called the police and the police took her back to ER in handcuffs on a 5150. Pt is vague on the details of events because as she admits she had been drinking. In fact the pt had started drinking on Sunday am and was incredulous to find it was Sunday night. She admits she has lost a whole day. Pt is minimizing the seriousness of her OD attempt. She denies ever wanting to kill herself. Verbalized she does not need to be on a hold. Pt has been in our ER seven times for deliberate aspirin overdose. Diagnosis/Presenting symptoms: Depression, anxious, crying Assessment What has happened this shift: Pt was in w/Dr Kidd at change of shift. 1:1 assessment completed at bedside. Pt denies s/i, reports some depression. Pt reports attending groups today and states it was very emotional and she cried during group. Pt states they worked on various projects and she feeling better. Pt was anxious during assessment. She states her appetite isnt great, but she sleeps well w/her medicine and cpap machine. She continues to have low back pain 04/14 and was given PRNS for pain and anxiety tonight. S/I, H/I: Denies A/VH: Denies Sleep: pt uses CPAP reports sleeping well at night ADL's: Independent, showered and well groomed Group attendance: yes Were meds taken: yes Any med S/E no Mental Status Exam Appearance: well groomed Eye contact: direct Behavior: pleasant cooperative Speech: soft tone, normal rate/rhythm, Mood: depressed, anxious Affect: appropriate Thought process: Linear, Thought Content: guarded conversation Cognition: intact Insight: Fair to good Judgment: Fair to good Interventions: PRN's used: Ativan, Flexeril Therapeutic interventions: 1:1,assessment, q15 safety checks, educated on MRSA ie hand washing, avoid sharing towels and razors, therapeutic support given. Restraints/seclusion/emergency medication: None Justification of Continued Inpatient Treatment: Pt with recent OD attempt on ASA, needs further stabilization and would be at high risk if discharged at this time due to hx of multiple S/A. Continued therapeutic support and medication management needed to provide stabilization, prevent readmittance.
[2018-12-06 07:44] VITALS: BP 125/70
[2018-12-06] MEDS: levoTHYROXINE 100mcg tablet PO SCH (08:10)
[2018-12-06] MEDS: pantoprazole 40mg Tablet.DR PO SCH ×2 (08:10→20:13)
[2018-12-06] MEDS: gemfibrozil 600mg tablet PO SCH ×2 (08:10→20:13)
[2018-12-06] MEDS: cyanocobalamin 500mcg tablet PO SCH (08:10)
[2018-12-06] MEDS: NYSTATIN CREAM - 30GM TUBE TP SCH ×2 (08:10→20:14)
[2018-12-06] MEDS: duloxetine 30mg CAPSULE.DR PO SCH (08:11)
[2018-12-06] MEDS: traMADol 50MG tablet PO SCH ×3 (08:11→20:23)
[2018-12-06] MEDS: gabapentin 300mg capsule PO SCH (08:11)
[2018-12-06] MEDS: loratadine 10mg tablet PO SCH (08:11)
[2018-12-06] MEDS: nicotine 21mg patch - 24 hr TD SCH (08:14)
[2018-12-06] MEDS: LORazepam 1 MG tablet PO PRN ×3 (08:16→20:22)
--- NOTE | 2018-12-06 12:30 | NUR ---
RN Progress Note Chief Complaint: Depression, Suicide attempt by aspirin overdose Legal hold: 5150 danger to self Client on involuntary status for DTS. Report received from Yara ARMAS with use of SBAR Why are they here: Pt was placed on 5150 for DTS due to depression and SA by aspirin overdose. Pt was brought to ER by EMS for Aspirin overdose. She eloped from ER and took a bus home. Per pt's she did not know she was on a hold so and felt better so she just left. Per ER Docs note "Patient ended up getting upset and ripped her IV out per nurse and left the emergency room." Pt returned home the called the police and the police took her back to ER in handcuffs on a 5150. Pt is vague on the details of events because as she admits she had been drinking. In fact the pt had started drinking on Sunday am and was incredulous to find it was Sunday night. She admits she has lost a whole day. Pt is minimizing the seriousness of her OD attempt. She denies ever wanting to kill herself. Verbalized she does not need to be on a hold. Pt has been in our ER seven times for deliberate medication overdose. Diagnosis/Presenting symptoms: Depression, alcoholism, anxious Assessment Pt up for breakfast in the Community room, returned to room after breakfast for a nap. Pt c/o feeling "a little tired." Medication education provided as Cymbalta is a new med for the patient. Pt rated depression at a 4/10 this am, denied SI. Pt c/o anxiety during breakfast, medicated with prn Ativan 1 mg at 0816 with good effect. Pt uses a CPAP at night for sleep apnea, tubing and cord removed from room and placed in pt's locker during the day. Pt c/o 6/10 back pain for which routine tramadol is effective, no unsafe behaviors noted. S/I, H/I: Pt denies A/VH: Pt denies Sleep: Pt uses CPAP reports sleeping well at night ADL's: Independent Group attendance: Yes, attended morning group Were meds taken: Yes Any med S/E: "A little tired." Mental Status Exam Appearance: WNL Eye contact: Good Behavior: Appropriated Speech: Clear, audible, normal rate & rhythm Mood: Depressed, anxious Affect: Congruent Thought process: Organized, logical Thought Content: discharge plan Cognition: A/O X 4 Insight: Fair to good Judgment: Fair to good Interventions: PRN's used: Ativan 1 mg Therapeutic interventions: 1:1 assessment, provided safe, therapeutic environment, medication education, medication administration/monitoring, Q 15 min checks. Restraints/seclusion/emergency medication: None Justification of Continued Inpatient Treatment: Pt with recent OD attempt on ASA, needs further stabilization and would be at high risk if discharged at this time due to hx of multiple SA's. Continued therapeutic support and medication management needed to provide stabilization, prevent readmittance, discharge planning.
--- NOTE | 2018-12-06 16:24 | NUR ---
Pt's here for a meeting with patient/psychiatrist.
--- NOTE | 2018-12-06 18:24 | NUR ---
Pt's status changed to voluntary.
[2018-12-06 19:00] VITALS: BP 128/82
[2018-12-06] MEDS: traZODone 50mg tablet PO SCH (20:13)
[2018-12-06] MEDS: cyclobenzaprine 10mg tablet PO PRN (20:13)
[2018-12-06] MEDS: atorvastatin 20mg tablet PO SCH (20:14)
[2018-12-06] MEDS: lurasidone 20mg tablet PO SCH (20:14)
--- NOTE | 2018-12-06 21:18 | NUR ---
RN Progress Note Chief Complaint: Depression, Suicide attempt by aspirin overdose Legal hold: 5150 danger to self Client on involuntary status for DTS. Report received from José Manuel ARMAS with use of SBAR Why are they here: Pt was placed on 5150 for DTS due to depression and SA by aspirin overdose. Pt was brought to ER by EMS for Aspirin overdose. She eloped from ER and took a bus home. Per pt's she did not know she was on a hold so and felt better so she just left. Per ER Docs note "Patient ended up getting upset and ripped her IV out per nurse and left the emergency room." Pt returned home the called the police and the police took her back to ER in handcuffs on a 5150. Pt is vague on the details of events because as she admits she had been drinking. In fact the pt had started drinking on Sunday am and was incredulous to find it was Sunday night. She admits she has lost a whole day. Pt is minimizing the seriousness of her OD attempt. She denies ever wanting to kill herself. Verbalized she does not need to be on a hold. Pt has been in our ER seven times for deliberate medication overdose. Diagnosis/Presenting symptoms: Depression, alcoholism, anxious Assessment Pt was in the walking in the hallway at change of shift 1:1 assessment completed at bedside. Pt reports depression of 4/10, denies s/i. States she is feeling better because she was concerned her was considering leaving her, but some of the fear of that has been relieved w/meeting w/Dr today. Pt states she feels some of the "merry go round w/the relationship is better now." Pt reports appetite is fair but not good. She is eating well and finished dinner. pt states she sleeps well w/cpap, tubing and chords kept in locker during day shift. Pt is med compliant, requested ativan for anxiety tonight w/evening meds. Pt c/o 710 back pain, took prn flexeril, scheduled ultram tonight. S/I, H/I: Pt denies A/VH: Pt denies Sleep: Pt uses CPAP reports sleeping well at night ADL's: Independent Group attendance: Yes, attended morning group Were meds taken: Yes Any med S/E: none reported or observed Mental Status Exam Appearance: Adequately groomed and dressed Eye contact: Good Behavior: Appropriate Speech: WNL normal rate & rhythm Mood: Depressed, anxious Affect: Congruent Thought process: linear Thought Content: discharge plan Cognition: intact Insight: Fair to good Judgment: Fair to good Interventions: PRN's used: Ativan, Flexeril Therapeutic interventions: 1:1 assessment, provided safe, therapeutic environment, medication education, medication administration/monitoring, Q 15 min checks. Restraints/seclusion/emergency medication: None Justification of Continued Inpatient Treatment: Pt with recent OD attempt on ASA, needs further stabilization and would be at high risk if discharged at this time due to hx of multiple SA's. Continued therapeutic support and medication management needed to provide stabilization, prevent readmittance, discharge planning. Addendum: 12/07/18 at 0308 by Bonnie Molina RN PT REQUESTING ATIVAN, PT STATES SHE IS ANXIOUS AND CAN'T SLEEP. PRN GIVEN
[2018-12-07] MEDS: LORazepam 1 MG tablet PO PRN ×4 (02:47→21:30)
[2018-12-07] MEDS: traMADol 50MG tablet PO SCH ×3 (07:57→20:09)
[2018-12-07] MEDS: loratadine 10mg tablet PO SCH (07:57)
[2018-12-07] MEDS: duloxetine 30mg CAPSULE.DR PO SCH (07:57)
[2018-12-07] MEDS: gabapentin 300mg capsule PO SCH (07:57)
[2018-12-07] MEDS: levoTHYROXINE 100mcg tablet PO SCH (07:58)
[2018-12-07] MEDS: gemfibrozil 600mg tablet PO SCH ×2 (07:58→20:08)
[2018-12-07] MEDS: cyanocobalamin 500mcg tablet PO SCH (07:58)
[2018-12-07] MEDS: pantoprazole 40mg Tablet.DR PO SCH ×2 (07:58→20:08)
[2018-12-07] MEDS: nystatin 15 GM powder TP SCH ×2 (07:58→20:09)
[2018-12-07] MEDS: nicotine 21mg patch - 24 hr TD SCH (07:59)
[2018-12-07 08:00] VITALS: BP 110/70
[2018-12-07 09:19] VITALS: BP 110/70
--- NOTE | 2018-12-07 13:16 | NUR ---
RN Progress Note Chief Complaint: Depression, Suicide attempt by aspirin overdose Legal hold: N/A Client voluntary Report received from Yara ARMAS with use of SBAR Why are they here: Pt was placed on 5150 for DTS due to depression and SA by aspirin overdose. Pt was brought to ER by EMS for Aspirin overdose. She eloped from ER and took a bus home. Per pt's she did not know she was on a hold so and felt better so she just left. Per ER Docs note "Patient ended up getting upset and ripped her IV out per nurse and left the emergency room." Pt returned home the called the police and the police took her back to ER in handcuffs on a 5150. Pt is vague on the details of events because as she admits she had been drinking. In fact the pt had started drinking on Sunday am and was incredulous to find it was Sunday night. She admits she has lost a whole day. Pt is minimizing the seriousness of her OD attempt. She denies ever wanting to kill herself. Verbalized she does not need to be on a hold. Pt has been in our ER seven times for deliberate medication overdose. Diagnosis/Presenting symptoms: Depression, alcoholism, anxiety Assessment Pt had a shower right after breakfast this morning, rated depression at a 4/10, denies SI, order for Nystatin cream changed to Nystatin powder per pt's request for redness bilateral breast folds. Pt's visited today and met with pt and Sony Lemus. Pt attended morning group, socializes with staff and peers, observed playing Zadspace in community room with another female patient. Pt states the plan is for her to hopefully got to [facility], she has been there before for 45 days and found it helpful. Pt also described an aversion program she attended before in another state where she had to drink until sick. Pt more hopeful today, expressed relief that her is not going to divorce her. Pt stated that her was fearful of losing the house he built as she had threatened to take it from him "in my rages." Pt has agreed to sign the house over to her . Pt expressed a desired to quit smoking but isn't sure if she can do so. Discussed not setting goals which may be unrealistic at this time but maybe setting shorter term goals easier to attain such as cutting back on the number of cigarettes she smokes daily verses quitting entirely for now while pt is focusing on stopping drinking. S/I, H/I: Pt denies A/VH: Pt denies Sleep: Pt uses CPAP at night, reports sleeping well ADL's: Independent Group attendance: Yes, attended morning group Were meds taken: Yes Any med S/E: None noted or reported Mental Status Exam Appearance: Neat, clean Eye contact: Good Behavior: pleasant, cooperative with treatment plan Speech: Clear, audible, normal rate & rhythm Mood: Improved though has periods of increase anxiety Affect: Congruent Thought process: Organized, logical, goal oriented Thought Content: Rash under breasts really bothering pt, c/o itching, applied Nystatin powder but if rash does not improve, may need an oral antifungal med. Pt also focused on treatment program once discharged. Cognition: A/O X 4 Insight: Fair to good Judgment: Fair to good Interventions: PRN's used: Ativan 1 mg at 0900 Therapeutic interventions: 1:1 assessment, therapeutic conversation, medication education, medication administration/monitoring, Q 15 min checks. Restraints/seclusion/emergency medication: None Justification of Continued Inpatient Treatment: Pt with recent OD attempt on ASA, needs further stabilization and would be at high risk if discharged at this time due to hx of multiple SA's. Continued therapeutic support and medication management needed to provide stabilization, prevent readmittance, needs alcohol treatment program set up prior to discharge. Addendum: 12/07/18 at 1615 by Miryam Carranza RN (Lee) Pt requested ativan at 1530 for increased anxiety. brought in cream from home; mometasone furoate cream to chest lesions once daily, sent to pharmacy to check and return.
--- NOTE | 2018-12-07 15:09 | NUR ---
Initial:Pt admit for alcohol binge, pill overdose and depression. PO intake 100% meeting nutrition needs. MoM ordered but not yet given. No wounds or edema. LBM 12/06. Will continue to monitor. Rec: 1. Continue with Regular diet 2. Weekly weights Addendum: 12/07/18 at [address] Amended: Links added. Addendum: 12/07/18 at [address] I have reviewed and agree with note by Furnace Firer. Noris Buck RD
[2018-12-07 19:00] VITALS: BP 121/58
[2018-12-07] MEDS: lurasidone 20mg tablet PO SCH (20:08)
[2018-12-07] MEDS: traZODone 50mg tablet PO SCH (20:08)
[2018-12-07] MEDS: atorvastatin 20mg tablet PO SCH (20:09)
--- NOTE | 2018-12-08 04:03 | NUR ---
RN Progress Note What happened this shift? Pt was given nystatin for rash under breasts bilaterally. Pt stated that she was feeling alright and had a good day because her stopped by to give her clothes. Pt was given tubings for CPAP machine. Mood: anxious Affect: normal, congruent Thought: organized, logical Behavior: pleasant, cooperative PRNS: Ativan 1mg at 2130
[2018-12-08] MEDS: LORazepam 1 MG tablet PO PRN ×3 (04:04→20:38)
[2018-12-08 07:22] VITALS: BP 130/60
[2018-12-08] MEDS: gemfibrozil 600mg tablet PO SCH ×2 (07:35→20:23)
[2018-12-08] MEDS: loratadine 10mg tablet PO SCH (07:35)
[2018-12-08] MEDS: levoTHYROXINE 100mcg tablet PO SCH (07:35)
[2018-12-08] MEDS: traMADol 50MG tablet PO SCH ×4 (07:35→20:40)
[2018-12-08] MEDS: cyanocobalamin 500mcg tablet PO SCH (07:35)
[2018-12-08] MEDS: pantoprazole 40mg Tablet.DR PO SCH ×2 (07:35→20:23)
[2018-12-08] MEDS: duloxetine 30mg CAPSULE.DR PO SCH (07:35)
[2018-12-08] MEDS: nicotine 21mg patch - 24 hr TD SCH (07:36)
[2018-12-08] MEDS: gabapentin 300mg capsule PO SCH ×2 (07:36→20:24)
[2018-12-08] MEDS: mometasone furoate 0.1% ointment 15g TP SCH (08:00)
[2018-12-08] MEDS: nystatin 15 GM powder TP SCH ×2 (08:00→20:27)
[2018-12-08] MEDS ORDERED: acetaminophen 325mg tablet PO PRN ×3 (13:40→14:30)
--- NOTE | 2018-12-08 17:10 | NUR ---
RN Progress Note Chief Complaint: Depression, Suicide attempt by OD Legal hold: Voluntary Client on voluntary status admitted for DTS Report received from CHANDA Paul with use of SBAR Why are they here: Pt used ASA, Benadryl and ETOH in an attempt to commit suicide. Diagnosis/Presenting symptoms: Depression, Alcohol addiction, Anxiety Assessment: Pt c/o of sciatica pain and focused on getting more pain medication to relieve the pain. S/I, H/I: Denies A/VH: Denies Sleep: Pt uses CPAP reports sleeping well at night ADL's: Independent Group attendance: Y Were meds taken: Y Any med S/E: none reported or observed Mental Status Exam Appearance: Adequately groomed and dressed Eye contact: Good Behavior: Appropriate Speech: WNL normal rate & rhythm Mood: Anxious regarding pain in left hip Affect: Congruent Thought process: linear Thought Content: discharge plan Cognition: intact Insight: Fair to good Judgment: Fair to good Interventions: PRN's used: Ativan Therapeutic interventions: 1:1 assessment, provided safe, therapeutic environment, medication education, medication administration/monitoring, encouraged to attend and participate in groups, monitor Q 15 min safety checks. Restraints/seclusion/emergency medication: N/A Justification of Continued Inpatient Treatment: Pt with recent OD in an attempt to kill herself needs further stabilization and would be at high risk if discharged at this time due to hx of multiple SA's. Continued therapeutic support and medication management needed to provide stabilization, prevent readmittance.
[2018-12-08 19:49] VITALS: BP 150/74
[2018-12-08] MEDS: lurasidone 20mg tablet PO SCH (20:22)
[2018-12-08] MEDS: traZODone 50mg tablet PO SCH (20:23)
[2018-12-08] MEDS: atorvastatin 20mg tablet PO SCH (20:25)
--- NOTE | 2018-12-08 23:55 | NUR ---
RN Progress Note Chief Complaint: Depression, Suicide attempt by OD Legal hold: Voluntary Client on voluntary status admitted for DTS Report received from CHANDA Uribe with use of SBAR Why are they here: Pt used ASA, Benadryl and ETOH in an attempt to commit suicide. Diagnosis/Presenting symptoms: Depression, Alcohol addiction, Anxiety Assessment: Pt c/o of sciatica pain hoping increased pain medication mg will help alleviate. Pt is hopeful regarding d/c plan and stated "I need to identify my triggers". RN encouraged the pt to stick with plan and to also seek help when needed. Pt stated she does not turn to people for support in the past and verbalized "I really want to do well this time." Pt is in a pleasant mood but did become anxious when discussing future because she is worried she will relapse. S/I, H/I: Denies A/VH: Denies Sleep: Pt uses CPAP; reports sleeping well at night ADL's: Independent Group attendance: Yes Were meds taken: Yes Any med S/E: none reported or observed Mental Status Exam Appearance: Adequately groomed and dressed Eye contact: Good Behavior: Appropriate Speech: WNL normal rate & rhythm Mood: Anxious when discussing potential for relapse Affect: Congruent Thought process: linear Thought Content: discharge plan Cognition: intact Insight: good Judgment: Fair to good Interventions: PRN's used: Ativan Therapeutic interventions: 1:1 assessment, provided safe, therapeutic environment, medication education, medication administration/monitoring, encouraged to attend and participate in groups, monitor Q 15 min safety checks. Restraints/seclusion/emergency medication: N/A Justification of Continued Inpatient Treatment: Pt with recent OD in an attempt to kill herself needs further stabilization and would be at high risk if discharged at this time due to hx of multiple SA's. Continued therapeutic support and medication management needed to provide stabilization, prevent readmittance. Addendum: 12/09/18 at 0505 by Elizabeth Rodriguez RN PRN Ativan given. Ultram given.
[2018-12-09] MEDS ORDERED: traMADol 50MG tablet PO SCH (04:46)
[2018-12-09] MEDS: LORazepam 1 MG tablet PO PRN ×2 (04:47→12:16)
[2018-12-09 08:00] VITALS: BP 123/78
[2018-12-09] MEDS: nystatin 15 GM powder TP SCH ×2 (08:00→20:22)
[2018-12-09] MEDS: cyanocobalamin 500mcg tablet PO SCH (08:03)
[2018-12-09] MEDS: levoTHYROXINE 100mcg tablet PO SCH (08:03)
[2018-12-09] MEDS: gemfibrozil 600mg tablet PO SCH ×2 (08:03→20:17)
[2018-12-09] MEDS: loratadine 10mg tablet PO SCH (08:03)
[2018-12-09] MEDS: pantoprazole 40mg Tablet.DR PO SCH ×2 (08:03→20:18)
[2018-12-09] MEDS: duloxetine 30mg CAPSULE.DR PO SCH (08:03)
[2018-12-09] MEDS: gabapentin 300mg capsule PO SCH ×2 (08:03→20:17)
[2018-12-09] MEDS: nicotine 21mg patch - 24 hr TD SCH (08:04)
[2018-12-09] MEDS: mometasone furoate 0.1% ointment 15g TP SCH (10:00)
[2018-12-09] MEDS: traMADol 50MG tablet PO SCH ×2 (12:53→20:19)
--- NOTE | 2018-12-09 16:49 | NUR ---
Nursing Progress Note: Chief Complaint: Alcohol binge with aspirin and benadryl OD in suicide attempt Legal hold: voluntary Client status is voluntary Report received from CHANDA Johnson with use of SBAR. Why are they here: Apparent suicide attempt by binging on alcohol and overdosing on aspirin and benadryl. Diagnosis/presenting symptoms: Depression, alcoholism. Pt has previous overdose attempts. Pt is currently depressed and concerned about her alcohol use disorder. Assessment What has happened this shift: Pt was sleeping at change of shift. Pt cooperated with assessment. Pt expressed that she has depression and anxiety. Her affect is constricted. She attended groups. She wants to seek inpatient treatment for her alcohol use disorder. She shared she contacted [facility] and there are no available beds at this time. S/I, H/I: denies A/VH: denies Sleep: napped ADL's: independent Group attendance: yes Were meds taken: yes Any med S/E: none noted Mental Status Exam Appearance: neat Eye contact: direct Behavior: cooperative with patient care Speech: Articulate Mood: depressed Affect: constricted Thought process: linear and connected Thought Content: pt concerned about her discharge plan and wants inpatient alcohol treatment. Cognition: A&Ox4 Insight: fair Judgment: fair Interventions PRN's used: None Therapeutic interventions: Established therapeutic relationship, active listening, offered 1:1 support allowing pt to express feelings and thoughts, educated and administered medications as ordered while monitoring for side effects, maintained Q15 min safety checks, Restraints/seclusion/emergency medication: None Justification of Continued Inpatient Treatment: Pt is depressed. She needs continued medication adjustment and stabilization to prevent future readmission.
[2018-12-09 20:00] VITALS: BP 127/64
[2018-12-09] MEDS: atorvastatin 20mg tablet PO SCH (20:16)
[2018-12-09] MEDS: traZODone 50mg tablet PO SCH (20:18)
[2018-12-09] MEDS: hydrOXYzine 25 MG tablet PO PRN (20:20)
[2018-12-09] MEDS: lurasidone 20mg tablet PO SCH (20:20)
--- NOTE | 2018-12-09 23:46 | NUR ---
RN Progress Note Chief Complaint: Depression, Suicide attempt by OD Legal hold: Voluntary Client on voluntary status admitted for DTS Report received from CHANDA Eugene with use of SBAR Why are they here: Pt used ASA, Benadryl and ETOH in an attempt to commit suicide. Diagnosis/Presenting symptoms: Depression, Alcohol addiction, Anxiety Assessment: Pt is in a pleasant but anxious mood. Anxiety r/t to placement at [facility]-- the facility does not have any open bed currently. Pt wishes to start rehab and worried she "might not get in." Pt stated that the SW will contact [facility] tomorrow to see what the wait time will be and if there is anyway to expedite the admit process. Back and sciatic pain less than yesterday but pt still needing pain medications to remain comfortable. Pt concerned and c/o itchiness r/t to yeast infection under breast folds is not resolving with cream or powder; it appears to be worsening. RN paged hospitalist to determine alternative or complimentary interventions; MD Kidd added atarax to medication to alleviate itching. S/I, H/I: Denies A/VH: Denies Sleep: Pt uses CPAP; Sleeps well ADL's: Independent Group attendance: Yes Were meds taken: Yes Any med S/E: none reported or observed Mental Status Exam Appearance: Adequately groomed and dressed Eye contact: Good Behavior: Appropriate Speech: WNL normal rate & rhythm Mood: Anxious when discussing potential for relapse & regarding wait time for [facility] admit Affect: Congruent Thought process: linear Thought Content: discharge plan Cognition: intact Insight: good Judgment: Fair to good Interventions: PRN's used: Atarax Therapeutic interventions: 1:1 assessment, provided safe, therapeutic environment, medication education, medication administration/monitoring, encouraged to attend and participate in groups, monitor Q 15 min safety checks Restraints/seclusion/emergency medication: N/A Justification of Continued Inpatient Treatment: Pt with recent OD in an attempt to kill herself needs further stabilization and would be at high risk if discharged at this time due to hx of multiple SA's and alcoholism. Continued therapeutic support and medication management needed to provide stabilization, prevent readmittance. Addendum: 12/10/18 at 0352 by Elizabeth Rodriguez RN Atarax given for itching. Rash cleansed and dried-- Nystatin powder applied.
[2018-12-10] MEDS: nystatin 15 GM powder TP SCH ×2 (03:45→20:33)
[2018-12-10] MEDS: hydrOXYzine 25 MG tablet PO PRN ×4 (03:45→20:51)
[2018-12-10 07:56] VITALS: BP 116/61
[2018-12-10] MEDS: mometasone furoate 0.1% ointment 15g TP SCH (08:00)
[2018-12-10] MEDS: loratadine 10mg tablet PO SCH (08:27)
[2018-12-10] MEDS: pantoprazole 40mg Tablet.DR PO SCH ×2 (08:27→20:32)
[2018-12-10] MEDS: duloxetine 30mg CAPSULE.DR PO SCH (08:27)
[2018-12-10] MEDS: levoTHYROXINE 100mcg tablet PO SCH (08:27)
[2018-12-10] MEDS: gemfibrozil 600mg tablet PO SCH ×2 (08:28→20:32)
[2018-12-10] MEDS: gabapentin 300mg capsule PO SCH ×2 (08:28→20:36)
[2018-12-10] MEDS: traMADol 50MG tablet PO SCH ×3 (08:28→20:44)
[2018-12-10] MEDS: cyanocobalamin 500mcg tablet PO SCH (08:28)
[2018-12-10] MEDS: nicotine 21mg patch - 24 hr TD SCH (08:32)
[2018-12-10] MEDS ORDERED: duloxetine 30mg CAPSULE.DR PO ONE (09:15)
[2018-12-10] MEDS: cephalexin 500mg capsule PO SCH (17:28)
--- NOTE | 2018-12-10 17:30 | NUR ---
Nursing Progress Note: Chief Complaint: Alcohol binge with aspirin and benadryl OD in suicide attempt Legal hold: voluntary Client status is voluntary Report received from CHANDA Johnson with use of SBAR. Why are they here: Apparent suicide attempt by binging on alcohol and overdosing on aspirin and benadryl. Diagnosis/presenting symptoms: Depression, alcoholism. Pt has previous overdose attempts. Pt is currently depressed and concerned about her alcohol use disorder. Assessment .What has happened this shift: Depressed mood, pleasant affect. Attends groups and meals, cooperative, neat and clean. States she has a lot of disappointment in herself and she states she has let her family down, "they are fed up with me." States she and her are on the verge of divorce and that he is taking her off the deed to their house because of her actions but if she is willing to get treatment he "won't do that." States she wants to be a good mom and grandmother. Hospitalist here to see rash under breasts today due to it getting worse and spreading despite Nystatin powder and cream. . She is to continue with powder and new order for keflex received. Patient feels relieved with assessment of skin. discharging tomorrow most likely . S/I, H/I: denies A/VH: denies Sleep: napped ADL's: independent Group attendance: yes Were meds taken: yes Any med S/E: none noted Mental Status Exam Appearance: neat Eye contact: direct Behavior: cooperative with patient care Speech: Articulate Mood: depressed Affect: pleasant Thought process: linear and connected Thought Content: pt concerned about her marriage and treatment plan Cognition: A&Ox4 Insight: fair Judgment: fair Interventions PRN's used: Atarax for itching Therapeutic interventions: Established therapeutic relationship, active listening, offered 1:1 support allowing pt to express feelings and thoughts, educated and administered medications as ordered while monitoring for side effects, maintained Q15 min safety checks, Restraints/seclusion/emergency medication: None Justification of Continued Inpatient Treatment: Pt is depressed. She needs continued medication adjustment and stabilization to prevent future readmission.
[2018-12-10] MEDS ORDERED: DULO30CA51 PO (18:11)
[2018-12-10] MEDS ORDERED: LEVO100T PO (18:11)
[2018-12-10] MEDS ORDERED: GABA300C PO (18:11)
[2018-12-10] MEDS ORDERED: CYAN100097 PO (18:11)
[2018-12-10] MEDS ORDERED: LORA10TA7 PO (18:11)
[2018-12-10] MEDS ORDERED: ATOR-2 PO (18:11)
[2018-12-10] MEDS ORDERED: GEMF600T89 PO (18:11)
[2018-12-10] MEDS ORDERED: TRAZ-218 PO (18:11)
[2018-12-10] MEDS ORDERED: PANT40TA4 PO (18:11)
[2018-12-10 19:11] VITALS: BP 104/42
[2018-12-10 20:00] VITALS: BP 130/70
[2018-12-10] MEDS: lurasidone 20mg tablet PO SCH (20:34)
[2018-12-10] MEDS: traZODone 50mg tablet PO SCH (20:34)
[2018-12-10] MEDS: cyclobenzaprine 10mg tablet PO PRN (20:36)
[2018-12-10] MEDS: atorvastatin 20mg tablet PO SCH (20:51)
--- NOTE | 2018-12-11 01:23 | NUR ---
Nursing Note: Chief Complaint: Depression Legal hold: Voluntary Client on voluntary DTS Report received from nurse with use of SBAR: CHANDA Aguero Why are they here: Pt. admitted for DTS after a suicide attempt to overdose on alcohol, aspirin, and Benadryl. She admitted that she had been under a lot of stress r/t caring for her sick father and arguing with her . She has had previous OD attempts in the past regarding ASA and cutting. Pt. will likely discharge to [facility] tomorrow for further rehabilitation. Diagnosis/presenting symptoms: Pt. denies S/I at this time and presents as animated and excited about upcoming discharge. Assessment What has happened this shift: Pt. up in Recreation Room at the beginning of the shift watching TV and interacting with others, remained here throughout the shift. She denies S/I and presents as animated and excited about her upcoming discharge. She reports she has been to [facility] before, however feels ready to make a change and stay away from alcohol. Pt. reports she feels all of her medications are working well and she is happy that she has been started on Keflex for her chronic rash under bilateral breast which causes her ongoing pruritus and discomfort. Nystatin power applied to area per orders, and pt. appears to be resting well with C-pap in use. S/I, H/I: Denies A/VH: N/A Sleep: Appears to be resting well, awoke to administer 0200 dose of Abt per orders ADL's: Independent Group attendance: Pt. attending all groups Were meds taken: Yes Any med S/E: None Mental Status Exam Appearance: Neat and well dressed Eye contact: Good Behavior: Cooperative and pleasant Speech: WNL Mood: Friendly and upbeat Affect: Animated Thought process: WNL Thought Content: Preoccupation and excitement regarding upcoming discharge plans Cognition: A&O X4 Insight: Good Judgment: Good Interventions PRN's used: Flexeril per pain and Atrax per pruritus Therapeutic interventions: Introduced self and established rapport, provided active listening, maintained a safe and supportive environment, ensured contract for safety, provided medication education, and provided treatment for chronic rash per orders. Restraints/seclusion/emergency medication: N/A Justification of Continued Inpatient Treatment: Pt. continues to require medication adjustments which require monitoring, however pt. may be able to discharge tomorrow.
[2018-12-11] MEDS: cephalexin 500mg capsule PO SCH ×3 (02:06→13:20)
[2018-12-11] MEDS: hydrOXYzine 25 MG tablet PO PRN ×3 (02:26→13:21)
--- NOTE | 2018-12-11 02:27 | NUR ---
Nursing Note: Obtained pt. weekly wt, pt. has gained 12 pounds since admission, will endorse to AM shift. Addendum: 12/11/18 at 0414 by Patricia Cintron RN Pt. refused to have Nicotine Patch removed at HS despite education provided.
[2018-12-11] MEDS ORDERED: duloxetine 30mg CAPSULE.DR PO SCH (08:00)
[2018-12-11] MEDS: nicotine 21mg patch - 24 hr TD SCH (08:46)
[2018-12-11] MEDS: gemfibrozil 600mg tablet PO SCH (08:47)
[2018-12-11] MEDS: cyanocobalamin 500mcg tablet PO SCH (08:48)
[2018-12-11] MEDS: gabapentin 300mg capsule PO SCH (08:48)
[2018-12-11] MEDS: levoTHYROXINE 100mcg tablet PO SCH (08:48)
[2018-12-11] MEDS: loratadine 10mg tablet PO SCH (08:48)
[2018-12-11] MEDS: pantoprazole 40mg Tablet.DR PO SCH (08:48)
[2018-12-11] MEDS: traMADol 50MG tablet PO SCH ×2 (08:49→13:21)
[2018-12-11] MEDS: mometasone furoate 0.1% ointment 15g TP SCH (08:50)
[2018-12-11] MEDS: nystatin 15 GM powder TP SCH (08:50)
[2018-12-11] MEDS ORDERED: CEPH500C5 PO (11:10)
[2018-12-11] MEDS ORDERED: LURA20TA PO (11:16)
--- NOTE | 2018-12-11 13:57 | NUR ---
NURSING DISCHARGE NOTE The patient was discharged today at 1357. She was picked up by a healthcare representative of [facility]. The patient denies suicidal thoughts and stated, "I am looking forward to getting on with my treatment at [facility]." She was escorted to the lobby with all of her belongings, instructions and medications by CHARO Neves.
[2018-12-11] MEDS ORDERED: lactobacillus rhamnosus 10,000 MMU CELLS/CAPSULE PO SCH (20:00)
== END 2018-12-11 13:57 | disposition short-term general hospital (02) | DRG 751 ==
LOC: ADULT MH 20:20
PROVIDERS: ADMIT Psychiatry & Neurology Psychiatry; ATTEND Psychiatry & Neurology Psychiatry
PROC: 5A09357 Assistance with Respiratory Ventilation, Less than 24 Consecutive Hours, Continuous Positive Airway Pressure (ICD-10-PCS; principal; 2018-12-03)
PROC: 5A09357 Assistance with Respiratory Ventilation, Less than 24 Consecutive Hours, Continuous Positive Airway Pressure (ICD-10-PCS; 2018-12-08)
PROC: 5A09357 Assistance with Respiratory Ventilation, Less than 24 Consecutive Hours, Continuous Positive Airway Pressure (ICD-10-PCS; 2018-12-09)
DX: F33.2 Major depressive disorder, recurrent severe without psychotic features (principal); G62.9 Polyneuropathy, unspecified; T39.012A Poisoning by aspirin, intentional self-harm, initial encounter; F33.9 Major depressive disorder, recurrent, unspecified; T45.0X2A Poisoning by antiallergic and antiemetic drugs, intentional self-harm, initial encounter; E03.9 Hypothyroidism, unspecified; E66.9 Obesity, unspecified; E78.1 Pure hyperglyceridemia; E78.5 Hyperlipidemia, unspecified; Z96.643 Presence of artificial hip joint, bilateral; F17.210 Nicotine dependence, cigarettes, uncomplicated; F41.9 Anxiety disorder, unspecified; G47.30 Sleep apnea, unspecified; F10.20 Alcohol dependence, uncomplicated; M54.9 Dorsalgia, unspecified; G89.4 Chronic pain syndrome; K21.9 Gastro-esophageal reflux disease without esophagitis; M19.90 Unspecified osteoarthritis, unspecified site; Z79.890 Hormone replacement therapy; Z79.899 Other long term (current) drug therapy; Z68.36 Body mass index [BMI] 36.0-36.9, adult; Z85.41 Personal history of malignant neoplasm of cervix uteri; Z90.710 Acquired absence of both cervix and uterus; Z88.5 Allergy status to narcotic agent
CPT/HCPCS: 36415; 80053; 80061; 83036; 87070; 94660; J3420; Q0177

== ENCOUNTER 2019-04-16 22:08 | Inpatient (IN) | payer MEDICAID ==
[~2019-04-16] VITALS: Ht 167.6 cm; Wt 85.0 kg
[~2019-04-16 22:08] MED LIST changes: +CEPH500C5 PO; -DESV50TA PO; +DULO30CA51 PO; -GABA-532 PO; +GABA300C PO; +LURA20TA PO; -LURA40TA3 PO; -TRAZ-218 PO; +TRAZ-251 PO
--- NOTE | 2019-04-16 22:17 | NUR ---
DR JEANB-APTISTE AY BEDSIDE WITH PT
[2019-04-16] MEDS ORDERED: naloxone 2mg/2ml inj ONE ×2 (22:21→22:29)
--- NOTE | 2019-04-16 22:29 | NUR ---
PATIENT WITH GCS OF 8. PATIENT REQUIRING DEEP PAINFUL STIMULATION. DR JEAN-BAPTISTE NOTIFIED. 2231 20 ETOMIDATE ADMINISTERED. 2232 1ST PASS FAIL. PATIENT BEING PREOXYGENATED BY BVM. 2234 PATIENT INTUBATED WITH 7.5 ET TUBE CONFIRMED WITH LUNG SOUNDS AND COLOR CHANGE. 24 AT THE TEETH.
--- NOTE | 2019-04-16 22:38 | NUR ---
CALL PLACED TO POISON CONTROL. (CJ) SYMPTOMS INCLUDE TACHYCARDIA, HALLUCINATIONS, SEDATION, SEIZURES, QRS PROLONGATION. RECOMMENDED INTERVENTIONS: INTUBATION FOR AIRWAY SUPPORT, CARDIAC MONITORING, BICARB AND FLUID BOLUSES IF NEDDED, BENZODIAZEPINES FOR SEIZURES. DO NOT ADMINISTER ACTIVATED CHARCOL FOR ASPIRATION RISK. BENEDRYL SLOWS GI MOTILITY SO EFFECTS MAY BE PROLONGED.
[2019-04-16] MEDS ORDERED: BUPR150T8 PO (22:57)
[2019-04-16] MEDS ORDERED: GABA-532 PO (22:57)
[2019-04-16] MEDS ORDERED: normal saline 1000ML IV soln IVB ONE (23:00)
[2019-04-16 23:01] LABS: ABG BASE EXCESS -5.8 mmol/L (-2.0-3.0); ABG HCO3 20.5 mmol/L (22.0-26.0); ABG OXYGEN SATURATION 90.7 % (95-98); ABG PCO2 (T) 42.8 mmHg (32.0-45.0); ABG PH (T) 7.297 (7.350-7.450); ABG PO2 (T) 71.3 mmHg (83-108); ALLEN'S TEST Positive; FCOHb 3.7 % (0.5-1.5); FMetHb 0.2 % (0.3-1.12); FO2Hb 87.2 % (94-100); PATIENT TEMPERATURE 36.9; PEEP 5 cm H2O; RESPIRATORY RATE 18 b/min; RESPIRATORY RATE (OBSERVED) 18 b/min; TIDAL VOLUME 400 mL; TOTAL HEMOGLOBIN 16.6 G/dl (12.0-16.0)
[2019-04-16 23:21] LABS: BASOPHILS % (AUTO) 0.1 % (0-1); EOSINOPHILS % (AUTO) 0.2 % (0-6); HEMATOCRIT 47.4 % (35.0-45.0); HEMOGLOBIN 16.2 g/dl (12.0-16.0); LYMPHOCYTES # (AUTO) 1.3 X10'3 (1.1-4.8); MEAN CORPUSCULAR HEMOGLOBIN 29.1 PG (27.0-31.0); MEAN CORPUSCULAR HGB CONC 34.1 g/dL (33.0-36.5); MEAN CORPUSCULAR VOLUME 85.4 FL (78-98); MEAN PLATELET VOLUME 7.4 FL (7.4-10.4); MONOCYTES # (AUTO) 0.5 X10'3 (0-0.9); MONOCYTES % (AUTO) 3.1 % (2-12); NEUTROPHILS # (AUTO) 14.7 X10'3 (1.8-7.7); NEUTROPHILS % (AUTO) 88.6 % (42-75); PLATELET COUNT 336 X10'3 (140-440); RED BLOOD COUNT 5.56 X10'6 (4.20-5.60); RED CELL DISTRIBUTION WIDTH 14.7 % (11.5-14.5); WHITE BLOOD COUNT 16.6 X10'3 (4.5-11.0)
[2019-04-16] MEDS: midazolam 100mg in NS 100ml 100 ML IV PRN (23:23)
[2019-04-16 23:27] LABS: ALANINE AMINOTRANSFERASE 35 U/L (12-78); ALBUMIN 4.4 G/DL (3.4-5.0); ALKALINE PHOSPHATASE 157 IU/L (46-116); ANION GAP 14 (8-16); ASPARTATE AMINO TRANSFERASE 28 U/L (10-37); BILIRUBIN,TOTAL 0.1 MG/DL (0.1-1.0); BLOOD UREA NITROGEN 16 MG/DL (7-18); BUN/CREATININE RATIO 22.9 (6.6-38.0); CALCIUM 9.1 MG/DL (8.5-10.1); CHLORIDE 106 MMOL/L (99-107); GLUCOSE 121 MG/DL (70-104); POTASSIUM 3.7 MMOL/L (3.5-5.1); SODIUM 142 MMOL/L (135-145); TOTAL CARBON DIOXIDE 22.4 MMOL/L (24-32); TOTAL PROTEIN 8.7 G/DL (6.4-8.2); eGFR 87 ML/MIN
[2019-04-16 23:29] LABS: ETHANOL 0.257 GM/DL (0.0-0.010); TROPONIN I < 0.04 NG/ML (0.0-0.05)
[2019-04-16 23:33] LABS: PARTIAL THROMBOPLASTIN TIME 29 SECONDS (22-32)
[2019-04-16 23:41] LABS: CLARITY,URINE CLEAR (Clear); COLOR,URINE YELLOW (Yellow); GLUCOSE, URINE NEGATIVE (Neg); KETONES,URINE NEGATIVE (Neg); LEUKOCYTE ESTERASE ,URINE NEGATIVE (Neg); NITRITES, URINE NEGATIVE (Neg); OCCULT BLOOD,URINE TRACE-INTACT (Neg); PROTEIN,URINE 100 mg/dl (Neg); UROBILINOGEN,URINE 0.2 E.U/dL (0.2-1.0)
[2019-04-16 23:56] LABS: UA COLLECTION TYPE FOLEY CATH
[2019-04-17] VITALS (14 sets, daily range): BP systolic 131–174; BP diastolic 75–90
[2019-04-17] LABS: ACETAMINOPHEN < 2.0 UG/ML (10-30)
[2019-04-17 00:09] LABS: URINE AMPHETAMINE SCREEN NEGATIVE (Neg); URINE BARBITUATE SCREEN NEGATIVE (Neg); URINE BENZODIAZEPINES SCREEN NEGATIVE (Neg); URINE CANNABINOID SCREEN NEGATIVE (Neg); URINE COCAINE SCREEN NEGATIVE (Neg); URINE METHADONE SCREEN NEGATIVE (Neg); URINE OPIATE SCREEN POSITIVE (Neg); URINE PHENCYCLIDINE SCREEN NEGATIVE (Neg)
[2019-04-17 00:10] LABS: HYALINE CASTS 0-3 /LPF (NEGATIVE); SQUAMOUS EPITHELIAL CELL,UR FEW /LPF (FEW)
[2019-04-17 00:11] LABS: RBC,URINE 0-2 /HPF (0-2); WBC,URINE 0-4 /HPF (0-4)
[2019-04-17 00:12] LABS: BACTERIA,URINE NONE SEEN /HPF (Neg); MUCUS STRANDS FEW /LPF (Neg)
[2019-04-17] MEDS ORDERED: midazolam 100mg in NS 100ml 100 ML IV PRN (00:22)
[2019-04-17] MEDS ORDERED: normal saline 1000ml 1,000 ML IV SCH (00:22)
[2019-04-17] MEDS ORDERED: FENTANYL-0.9 % NACL/PF 100 ML IV PRN (00:22)
[2019-04-17] MEDS ORDERED: dextrose 50%-water 50ml dispensing syringe IV PRN ×3 (00:25→21:35)
[2019-04-17] MEDS ORDERED: dextrose ORAL solution 15 GM/59 ML bottle PO PRN ×2 (00:25)
[2019-04-17] MEDS ORDERED: potassium Cl 20 mEq SR tablet PO PRN (00:25)
[2019-04-17] MEDS ORDERED: magnesium hydroxide 30ml (MOM) UD suspension PO PRN (00:25)
[2019-04-17] MEDS ORDERED: ondansetron/PF 4mg/2ml inj IV PRN (00:25)
[2019-04-17] MEDS ORDERED: insulin Lispro (HumaLOG) vial - multi-dose SQ SCH (00:25)
[2019-04-17] MEDS ORDERED: morphine 2 MG/ML inj. syringe IV PRN (00:25)
[2019-04-17] MEDS: K, MAG and/or Phos replacement - Verify level? MC SCH ×2 (00:25→08:00)
[2019-04-17] MEDS ORDERED: thiamine inj. 100 MG in normal saline 100ml IV soln 100 ML IV ONE (00:25)
[2019-04-17] MEDS ORDERED: potassium CL 10mEq/100ml bag 100 ML IV PRN ×2 (00:25)
[2019-04-17] MEDS ORDERED: glucagon, human recombinant 1mg kit SUBCUT PRN (00:25)
[2019-04-17] MEDS ORDERED: morphine 4 MG/ML inj SYRINge IV PRN (00:25)
[2019-04-17] MEDS ORDERED: MESSAGE TO PHARMACY PO ONE (00:25)
[2019-04-17] MEDS ORDERED: acetaminophen 325mg tablet PO PRN ×2 (00:25)
[2019-04-17] MEDS ORDERED: thiamine 100mg/ml 2ml inj. IV ONE (00:45)
[2019-04-17 01:04] LABS: HEMOGLOBIN A1C 5.6 % (4.5-6.2)
[2019-04-17 03:56] LABS: ABG BASE EXCESS -3.6 mmol/L (-2.0-3.0); ABG HCO3 22.3 mmol/L (22.0-26.0); ABG OXYGEN SATURATION 95.8 % (95-98); ABG PCO2 (T) 44.3 mmHg (32.0-45.0); ABG PH (T) 7.322 (7.350-7.450); ABG PO2 (T) 94.1 mmHg (83-108); ALLEN'S TEST Positive; FCOHb 1.1 % (0.5-1.5); FMetHb 0.2 % (0.3-1.12); FO2Hb 94.6 % (94-100); MINUTE VOLUME 8 L/min; PATIENT TEMPERATURE 37.4; PEEP 5 cm H2O; RESPIRATORY RATE 18 b/min; RESPIRATORY RATE (OBSERVED) 20 b/min; TIDAL VOLUME 400 mL; TOTAL HEMOGLOBIN 15.5 G/dl (12.0-16.0)
--- NOTE | 2019-04-17 04:21 | NUR ---
Patient here from ER into room CICU 2016. I have received report from Brennan ARMAS and had the opportunity to ask questions and assume patient care.
[2019-04-17 05:57] LABS: BASOPHILS % (AUTO) 0.3 % (0-1); EOSINOPHILS % (AUTO) 0.1 % (0-6); HEMATOCRIT 43.2 % (35.0-45.0); HEMOGLOBIN 14.4 g/dl (12.0-16.0); LYMPHOCYTES # (AUTO) 1.4 X10'3 (1.1-4.8); LYMPHOCYTES % (AUTO) 15.4 % (21-51); MEAN CORPUSCULAR HEMOGLOBIN 28.5 PG (27.0-31.0); MEAN CORPUSCULAR HGB CONC 33.4 g/dL (33.0-36.5); MEAN CORPUSCULAR VOLUME 85.4 FL (78-98); MEAN PLATELET VOLUME 7.4 FL (7.4-10.4); MONOCYTES # (AUTO) 0.5 X10'3 (0-0.9); MONOCYTES % (AUTO) 5.5 % (2-12); NEUTROPHILS # (AUTO) 7.4 X10'3 (1.8-7.7); NEUTROPHILS % (AUTO) 78.7 % (42-75); PLATELET COUNT 250 X10'3 (140-440); RED BLOOD COUNT 5.06 X10'6 (4.20-5.60); RED CELL DISTRIBUTION WIDTH 14.6 % (11.5-14.5); WHITE BLOOD COUNT 9.4 X10'3 (4.5-11.0)
[2019-04-17 06:20] LABS: ALANINE AMINOTRANSFERASE 33 U/L (12-78); ALBUMIN 3.8 G/DL (3.4-5.0); ALBUMIN/GLOBULIN RATIO 1.1 (1.1-1.5); ALKALINE PHOSPHATASE 131 IU/L (46-116); AMYLASE 29 U/L (25-115); ANION GAP 14 (8-16); ASPARTATE AMINO TRANSFERASE 28 U/L (10-37); BILIRUBIN,TOTAL 0.2 MG/DL (0.1-1.0); BLOOD UREA NITROGEN 14 MG/DL (7-18); CALCIUM 8.4 MG/DL (8.5-10.1); CHLORIDE 109 MMOL/L (99-107); CREATININE 0.56 MG/DL (0.40-0.90); GLUCOSE 90 MG/DL (70-104); LIPASE 82 U/L (73-393); MAGNESIUM 1.5 MG/DL (1.5-2.4); POTASSIUM 3.8 MMOL/L (3.5-5.1); SODIUM 146 MMOL/L (135-145); TOTAL CARBON DIOXIDE 23.3 MMOL/L (24-32); TOTAL PROTEIN 7.4 G/DL (6.4-8.2); eGFR > 90 ML/MIN
--- NOTE | 2019-04-17 06:37 | NUR ---
Problems reprioritized. Patient report given, questions answered & plan of care reviewed with Brandyn ARMAS.
[2019-04-17] MEDS ORDERED: thiamine inj. 100 MG, folic acid inj. 2 MG in normal saline 100ml IV soln 100.0 ML IV SCH (08:00)
[2019-04-17] MEDS ORDERED: MVI, adult No.4 with vit. K 10 ML in dextrose 5% water 500ml 500 ML IV SCH ×2 (08:00)
[2019-04-17] MEDS ORDERED: ESOMEPRAZOLE 40 MG VIAL IV SCH (08:00)
[2019-04-17] MEDS ORDERED: 0.9 % SODIUM CHLORIDE 10 ML VIAL ONE (08:00)
[2019-04-17] MEDS ORDERED: rocuronium 10mg/ml inj IV ONE (08:00)
[2019-04-17] MEDS ORDERED: etomidate 2mg/ml inj. ONE (08:00)
[2019-04-17] MEDS: midazolam 100mg in NS 100ml 100 ML IV PRN (08:53)
[2019-04-17] MEDS: enoxaparin 40mg/0.4ml syringe SUBCUT SCH (11:07)
--- NOTE | 2019-04-17 12:05 | NUR ---
Extubated per Md orders. patient tolerated well. placed on 5L NC; VSS
[2019-04-17] MEDS ORDERED: cyclobenzaprine 10mg tablet PO PRN (13:40)
--- NOTE | 2019-04-17 16:15 | NUR ---
report received from Brandyn ARMAS in CICU
[2019-04-17] MEDS: gabapentin 300mg capsule PO SCH ×2 (16:16→23:37)
[2019-04-17] MEDS: buPROPion SR 150mg tablet PO SCH (16:16)
--- NOTE | 2019-04-17 16:50 | NUR ---
Patient came to floor to room 4014
--- NOTE | 2019-04-17 16:52 | NUR ---
Report called. patient transferred vial wheel chair with all belongings. she had a CPAP and a shirt
--- NOTE | 2019-04-17 18:46 | NUR ---
Problems reprioritized. Patient report given, questions answered & plan of care reviewed with Yara ARMAS.
[2019-04-17] MEDS: gemfibrozil 600mg tablet PO SCH (20:09)
[2019-04-17] MEDS: traZODone 50mg tablet PO SCH (20:10)
[2019-04-17] MEDS: traMADol 50MG tablet PO SCH (20:11)
[2019-04-17] MEDS ORDERED: lurasidone 20mg tablet PO SCH (21:00)
[2019-04-17] MEDS: insulin glargine (Lantus) pen - multi-dose SQ SCH (21:00)
--- NOTE | 2019-04-17 21:33 | NUR ---
I called Dede P FINGERNAIL TECHNICIAN alliances consultant for the pt's doctor to inquire about the etoh protocol and the FINGERNAIL TECHNICIAN said she will put the orders in herself. The patient is not having any signs of withdrawal yet.
[2019-04-17] MEDS ORDERED: LORazepam 2 mg/ml vial IV PRN (21:35)
[2019-04-18] MEDS: mineral oil/petrolatum ophthal oint EACHEYE SCH ×3 (01:43→20:00)
[2019-04-18 06:10] VITALS: BP 143/74
[2019-04-18 06:29] LABS: BASOPHILS % (AUTO) 0.4 % (0-1); EOSINOPHILS # (AUTO) 0.2 X10'3 (0-0.9); EOSINOPHILS % (AUTO) 2.6 % (0-6); HEMATOCRIT 40.4 % (35.0-45.0); HEMOGLOBIN 13.9 g/dl (12.0-16.0); LYMPHOCYTES # (AUTO) 1.7 X10'3 (1.1-4.8); LYMPHOCYTES % (AUTO) 22.2 % (21-51); MEAN CORPUSCULAR HEMOGLOBIN 29.4 PG (27.0-31.0); MEAN CORPUSCULAR HGB CONC 34.5 g/dL (33.0-36.5); MEAN CORPUSCULAR VOLUME 85.2 FL (78-98); MEAN PLATELET VOLUME 7.7 FL (7.4-10.4); MONOCYTES # (AUTO) 0.6 X10'3 (0-0.9); MONOCYTES % (AUTO) 7.7 % (2-12); NEUTROPHILS % (AUTO) 67.1 % (42-75); PLATELET COUNT 201 X10'3 (140-440); RED BLOOD COUNT 4.74 X10'6 (4.20-5.60); RED CELL DISTRIBUTION WIDTH 14.6 % (11.5-14.5); WHITE BLOOD COUNT 7.5 X10'3 (4.5-11.0)
--- NOTE | 2019-04-18 06:33 | NUR ---
Problems reprioritized. Patient report given, questions answered & plan of care reviewed with Huong ARMAS.
[2019-04-18 06:43] LABS: ALANINE AMINOTRANSFERASE 32 U/L (12-78); ALBUMIN 3.7 G/DL (3.4-5.0); ALKALINE PHOSPHATASE 140 IU/L (46-116); ANION GAP 9 (8-16); ASPARTATE AMINO TRANSFERASE 28 U/L (10-37); BILIRUBIN,TOTAL 0.9 MG/DL (0.1-1.0); BLOOD UREA NITROGEN 14 MG/DL (7-18); BUN/CREATININE RATIO 20.9 (6.6-38.0); CALCIUM 9.2 MG/DL (8.5-10.1); CHLORIDE 103 MMOL/L (99-107); CREATININE 0.67 MG/DL (0.40-0.90); GLUCOSE 104 MG/DL (70-104); LIPASE 113 U/L (73-393); MAGNESIUM 1.8 MG/DL (1.5-2.4); PHOSPHORUS 3.3 MG/DL (2.3-4.5); POTASSIUM 3.3 MMOL/L (3.5-5.1); SODIUM 139 MMOL/L (135-145); TOTAL CARBON DIOXIDE 27.5 MMOL/L (24-32); TOTAL PROTEIN 7.4 G/DL (6.4-8.2); eGFR > 90 ML/MIN
[2019-04-18] MEDS: multivitamins, therapeutics tablet PO SCH (07:18)
[2019-04-18] MEDS: gemfibrozil 600mg tablet PO SCH ×2 (07:19→20:47)
[2019-04-18] MEDS: pantoprazole 40mg Tablet.DR PO SCH (07:19)
[2019-04-18] MEDS: buPROPion SR 150mg tablet PO SCH (07:19)
[2019-04-18] MEDS: cyanocobalamin 500mcg tablet PO SCH (07:19)
[2019-04-18] MEDS: gabapentin 300mg capsule PO SCH ×3 (07:19→23:51)
[2019-04-18] MEDS: folic acid 1mg tablet PO SCH (07:20)
[2019-04-18] MEDS: levoTHYROXINE 100mcg tablet PO SCH (07:20)
[2019-04-18] MEDS: thiamine 100mg tablet PO SCH (07:20)
[2019-04-18] MEDS: potassium Cl 20 mEq SR tablet PO PRN ×3 (07:20→16:35)
[2019-04-18] MEDS: traMADol 50MG tablet PO SCH ×3 (07:21→20:47)
[2019-04-18] MEDS: loratadine 10mg tablet PO SCH (07:22)
[2019-04-18] MEDS: enoxaparin 40mg/0.4ml syringe SUBCUT SCH (07:23)
[2019-04-18] MEDS: K, MAG and/or Phos replacement - Verify level? MC SCH (08:00)
[2019-04-18 10:00] VITALS: BP 152/75
[2019-04-18] MEDS: LORazepam 1 MG tablet PO PRN ×3 (11:07→21:18)
[2019-04-18 17:00] VITALS: BP 105/54
--- NOTE | 2019-04-18 18:23 | NUR ---
Patient report given to Yara ARMAS
[2019-04-18] MEDS: traZODone 50mg tablet PO SCH (20:46)
[2019-04-18] MEDS: insulin glargine (Lantus) pen - multi-dose SQ SCH (21:00)
[2019-04-18] MEDS ORDERED: lurasidone 20mg tablet PO SCH (21:00)
[2019-04-18 22:00] VITALS: BP 112/71
[2019-04-19] MEDS: mineral oil/petrolatum ophthal oint EACHEYE SCH ×2 (02:00→08:00)
[2019-04-19 06:00] VITALS: BP 127/77
--- NOTE | 2019-04-19 06:30 | NUR ---
Problems reprioritized. Patient report given, questions answered & plan of care reviewed with Rossy ARMAS.
[2019-04-19 06:32] LABS: ALANINE AMINOTRANSFERASE 25 U/L (12-78); ALBUMIN 3.4 G/DL (3.4-5.0); ALKALINE PHOSPHATASE 124 IU/L (46-116); ANION GAP 8 (8-16); ASPARTATE AMINO TRANSFERASE 18 U/L (10-37); BILIRUBIN,TOTAL 0.5 MG/DL (0.1-1.0); BLOOD UREA NITROGEN 15 MG/DL (7-18); BUN/CREATININE RATIO 23.1 (6.6-38.0); CALCIUM 9.2 MG/DL (8.5-10.1); CHLORIDE 104 MMOL/L (99-107); CREATININE 0.65 MG/DL (0.40-0.90); GLUCOSE 112 MG/DL (70-104); MAGNESIUM 1.8 MG/DL (1.5-2.4); PHOSPHORUS 3.8 MG/DL (2.3-4.5); POTASSIUM 3.8 MMOL/L (3.5-5.1); SODIUM 137 MMOL/L (135-145); TOTAL CARBON DIOXIDE 25.2 MMOL/L (24-32); TOTAL PROTEIN 6.8 G/DL (6.4-8.2); eGFR > 90 ML/MIN
[2019-04-19 06:56] LABS: BASOPHILS % (AUTO) 0.2 % (0-1); EOSINOPHILS # (AUTO) 0.4 X10'3 (0-0.9); EOSINOPHILS % (AUTO) 6.1 % (0-6); HEMATOCRIT 37.6 % (35.0-45.0); HEMOGLOBIN 12.7 g/dl (12.0-16.0); LYMPHOCYTES # (AUTO) 1.1 X10'3 (1.1-4.8); LYMPHOCYTES % (AUTO) 18.2 % (21-51); MEAN CORPUSCULAR HEMOGLOBIN 28.9 PG (27.0-31.0); MEAN CORPUSCULAR HGB CONC 33.8 g/dL (33.0-36.5); MEAN CORPUSCULAR VOLUME 85.6 FL (78-98); MEAN PLATELET VOLUME 7.9 FL (7.4-10.4); MONOCYTES # (AUTO) 0.4 X10'3 (0-0.9); MONOCYTES % (AUTO) 6.3 % (2-12); NEUTROPHILS % (AUTO) 69.2 % (42-75); PLATELET COUNT 173 X10'3 (140-440); RED CELL DISTRIBUTION WIDTH 14.3 % (11.5-14.5); WHITE BLOOD COUNT 5.9 X10'3 (4.5-11.0)
[2019-04-19] MEDS: K, MAG and/or Phos replacement - Verify level? MC SCH (08:00)
[2019-04-19] MEDS ORDERED: naltrexone 50mg tablet PO SCH (08:00)
[2019-04-19] MEDS: cyanocobalamin 500mcg tablet PO SCH (08:15)
[2019-04-19] MEDS: gemfibrozil 600mg tablet PO SCH (08:16)
[2019-04-19] MEDS: loratadine 10mg tablet PO SCH (08:16)
[2019-04-19] MEDS: pantoprazole 40mg Tablet.DR PO SCH (08:16)
[2019-04-19] MEDS: gabapentin 300mg capsule PO SCH (08:16)
[2019-04-19] MEDS: thiamine 100mg tablet PO SCH (08:16)
[2019-04-19] MEDS: multivitamins, therapeutics tablet PO SCH (08:16)
[2019-04-19] MEDS: levoTHYROXINE 100mcg tablet PO SCH (08:16)
[2019-04-19] MEDS: folic acid 1mg tablet PO SCH (08:16)
[2019-04-19] MEDS: buPROPion SR 150mg tablet PO SCH (08:16)
[2019-04-19] MEDS: traMADol 50MG tablet PO SCH (08:17)
[2019-04-19] MEDS: enoxaparin 40mg/0.4ml syringe SUBCUT SCH (08:18)
[2019-04-19] MEDS: LORazepam 1 MG tablet PO PRN (09:33)
[2019-04-19 10:00] VITALS: BP 137/73
[2019-04-19] MEDS ORDERED: NALT50TA PO (10:49)
[2019-04-19] MEDS ORDERED: LURA20TA PO (10:49)
== END 2019-04-19 11:20 | disposition home or self-care (01) | DRG 812 ==
LOC: ER 22:09 → CICU 2S 04-17 03:56 → CMPBEDREQ 04-17 04:38 → ORTHO 4S 04-17 16:57
PROVIDERS: ADMIT Internal Medicine Critical Care Medicine; ATTEND Internal Medicine Critical Care Medicine
PROC: 0BH17EZ Insertion of Endotracheal Airway into Trachea, Via Natural or Artificial Opening (ICD-10-PCS; principal; 2019-04-17)
PROC: 5A1935Z Respiratory Ventilation, Less than 24 Consecutive Hours (ICD-10-PCS; 2019-04-17)
DX: T50.902A Poisoning by unspecified drugs, medicaments and biological substances, intentional self-harm, initial encounter (principal); J96.00 Acute respiratory failure, unspecified whether with hypoxia or hypercapnia; F33.9 Major depressive disorder, recurrent, unspecified; D72.829 Elevated white blood cell count, unspecified; E78.00 Pure hypercholesterolemia, unspecified; Z96.653 Presence of artificial knee joint, bilateral; F41.9 Anxiety disorder, unspecified; G43.909 Migraine, unspecified, not intractable, without status migrainosus; G89.29 Other chronic pain; M19.90 Unspecified osteoarthritis, unspecified site; M54.9 Dorsalgia, unspecified; E03.9 Hypothyroidism, unspecified; F10.220 Alcohol dependence with intoxication, uncomplicated; F17.210 Nicotine dependence, cigarettes, uncomplicated; G47.30 Sleep apnea, unspecified; Y92.89 Other specified places as the place of occurrence of the external cause; Z87.11 Personal history of peptic ulcer disease; Z88.6 Allergy status to analgesic agent; Z79.890 Hormone replacement therapy; Z88.8 Allergy status to other drugs, medicaments and biological substances; Z79.899 Other long term (current) drug therapy; Z90.710 Acquired absence of both cervix and uterus; Z56.0 Unemployment, unspecified
CPT/HCPCS: 36415; 36600; 71045; 80053; 80305; 80320; 80329; 81001; 82150; 82803; 82948; 83036; 83690; 83735; 84100; 84443; 84484; 85018; 85025; 85610; 85730; 87070; 93005; 94002; 94003; 94760; 96361; 96365; 96375; 99285; G0378; J1650; J1815; J2250; J2270; J2310; J2405; J3411; J3490; J7030; J7060

== ENCOUNTER 2019-08-13 09:52 | Emergency (ER) | payer MEDICAID ==
[~2019-08-13] VITALS: Ht 162.6 cm; Wt 89.0 kg
[~2019-08-13 09:52] MED LIST changes: +BUPR150T8 PO; -CEPH500C5 PO; -CYCLOBENZAPRINE 10 MG TABLET; -DULO30CA51 PO; +GABA-532 PO; -GABA300C PO; -GABAPENTIN 300 MG CAPSULE; -GEMFIBROZIL 600 MG TABLET; -LATUDA 40 MG; -LEVOTHYROXINE 100 MCG TABLET; -LORATADINE 10 MG TABLET; +NALT50TA PO; -PANTOPRAZOLE SOD DR 40 MG TAB; -TRAMADOL HCL 50 MG TABLET
--- NOTE | 2019-08-13 09:59 | NUR ---
Per EMS, patient had bottles of following medications opened and surrounding her person: B-12, chlordiazepoxide, acetominophen, ciprofloxacin, cyclobenzaprine, seroquel, levothyroxine, cephalexin, doxycycline, loratadine, protonix, gabapentin, astrovasta, latuda, gemfibrozil, meclizine, atorvastatin
--- NOTE | 2019-08-13 10:24 | NUR ---
CONTACTED CATRINA, PHARMACIST, AT POISON CONTROL AND RELAYED WHAT MEDICATIONS PT INGESTED, UNKNOWN STATUS OF AMOUNT TAKEN, AND THE TIME MEDICATION WAS TAKEN. 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 PC RECOMMENDED EKG, TELE MONITORING, CMP, INR, MG, TSH, TOTAL T4, 4 HOUR TYLENOL LEVEL AT 1300 WITH TREATMENT WITH MUCOMIST IF TYLENOL LEVEL >150, RECHECKED TYLENOL LEVEL AFTER 2-3 HOURS IF <150. IF PT IS ASYMPTOMATIC AND ALL TESTS ARE NEGATIVE, THEN PT CAN BE MEDICALLY CLEARED AFTER 6 HOURS OF OBSERVATION.
[2019-08-13] MEDS ORDERED: normal saline 1000ML IV soln IVB ONE ×2 (10:35→16:25)
[2019-08-13 10:38] LABS: CLARITY,URINE CLEAR (Clear); COLOR,URINE YELLOW (Yellow); GLUCOSE, URINE NEGATIVE (Neg); KETONES,URINE NEGATIVE (Neg); LEUKOCYTE ESTERASE ,URINE NEGATIVE (Neg); NITRITES, URINE NEGATIVE (Neg); OCCULT BLOOD,URINE NEGATIVE (Neg); PROTEIN,URINE NEGATIVE (Neg); UROBILINOGEN,URINE 0.2 E.U/dL (0.2-1.0)
[2019-08-13 10:39] LABS: UA COLLECTION TYPE OTHER
[2019-08-13 10:40] LABS: URINE HCG NEGATIVE (NEG)
[2019-08-13 10:43] LABS: URINE AMPHETAMINE SCREEN NEGATIVE (Neg); URINE BARBITUATE SCREEN NEGATIVE (Neg); URINE BENZODIAZEPINES SCREEN POSITIVE (Neg); URINE CANNABINOID SCREEN NEGATIVE (Neg); URINE COCAINE SCREEN NEGATIVE (Neg); URINE METHADONE SCREEN NEGATIVE (Neg); URINE OPIATE SCREEN NEGATIVE (Neg); URINE PHENCYCLIDINE SCREEN NEGATIVE (Neg)
[2019-08-13 11:05] LABS: BASOPHILS % (AUTO) 1.1 % (0-1); EOSINOPHILS # (AUTO) 0.2 X10'3 (0-0.9); EOSINOPHILS % (AUTO) 4.2 % (0-6); HEMATOCRIT 38.1 % (35.0-45.0); HEMOGLOBIN 13.2 g/dl (12.0-16.0); LYMPHOCYTES # (AUTO) 1.3 X10'3 (1.1-4.8); LYMPHOCYTES % (AUTO) 35.9 % (21-51); MEAN CORPUSCULAR HEMOGLOBIN 31.5 PG (27.0-31.0); MEAN CORPUSCULAR HGB CONC 34.6 g/dL (33.0-36.5); MEAN CORPUSCULAR VOLUME 90.9 FL (78-98); MEAN PLATELET VOLUME 6.5 FL (7.4-10.4); MONOCYTES # (AUTO) 0.2 X10'3 (0-0.9); MONOCYTES % (AUTO) 4.5 % (2-12); NEUTROPHILS % (AUTO) 54.3 % (42-75); PLATELET COUNT 196 X10'3 (140-440); RED BLOOD COUNT 4.19 X10'6 (4.20-5.60); RED CELL DISTRIBUTION WIDTH 15.2 % (11.5-14.5); WHITE BLOOD COUNT 3.7 X10'3 (4.5-11.0)
[2019-08-13 11:13] LABS: ALANINE AMINOTRANSFERASE 65 U/L (12-78); ALKALINE PHOSPHATASE 134 IU/L (46-116); ANION GAP 12 (8-16); ASPARTATE AMINO TRANSFERASE 57 U/L (10-37); BILIRUBIN,TOTAL 0.3 MG/DL (0.1-1.0); BLOOD UREA NITROGEN 15 MG/DL (7-18); CALCIUM 8.3 MG/DL (8.5-10.1); CHLORIDE 105 MMOL/L (99-107); CREATININE 0.88 MG/DL (0.40-0.90); GLUCOSE 114 MG/DL (70-104); POTASSIUM 3.7 MMOL/L (3.5-5.1); SODIUM 144 MMOL/L (135-145); TOTAL CARBON DIOXIDE 27.5 MMOL/L (24-32); eGFR 67 ML/MIN
[2019-08-13 11:26] LABS: ETHANOL 0.353 GM/DL (0.0-0.010)
[2019-08-13 11:33] LABS: ACETAMINOPHEN < 2.0 UG/ML (10-30)
--- NOTE | 2019-08-13 11:52 | NUR ---
PACKET FAXED TO [facility]
--- NOTE | 2019-08-13 12:00 | NUR ---
HERE AT BEDSIDE
--- NOTE | 2019-08-13 12:17 | NUR ---
PA MARTIN MADE AWARE SPO2 87-89% ON ROOM AIR FOR PAST 20 MIN, SUSTAINING AT 89%, PER PA REPLACE NASAL CANULA AT 2L, SPO2 97%.
[2019-08-13 15:05] LABS: ALANINE AMINOTRANSFERASE 53 U/L (12-78); ASPARTATE AMINO TRANSFERASE 52 U/L (10-37)
[2019-08-13] MEDS ORDERED: TRAZ-219 PO (15:21)
[2019-08-13] MEDS ORDERED: LURA40TA3 PO (15:21)
[2019-08-13] MEDS ORDERED: BUPR300T6 PO (15:21)
[2019-08-13] MEDS ORDERED: CYAN-34 PO (15:21)
[2019-08-13] MEDS ORDERED: PANT-47 PO (15:21)
[2019-08-13] MEDS ORDERED: GEMF600T89 PO (15:27)
[2019-08-13] MEDS ORDERED: LEVO100T9 PO (15:27)
[2019-08-13] MEDS ORDERED: QUET50TA79 PO (15:27)
[2019-08-13] MEDS ORDERED: ATOR-2 PO (15:28)
[2019-08-13] MEDS ORDERED: MYC15CR TP (15:45)
[2019-08-13] MEDS ORDERED: ACET-75 PO (15:45)
[2019-08-13] MEDS ORDERED: ondansetron/PF 4mg/2ml inj IV ONE (16:25)
[2019-08-13 20:00] VITALS: BP 122/53
--- NOTE | 2019-08-13 20:58 | NUR ---
The patient was moved to bed 20. She is tired but awakens easily. She is O2 via NC 2L. O2 sats are 92%.
--- NOTE | 2019-08-13 21:30 | NUR ---
THe patient appears to be sleeping
--- NOTE | 2019-08-13 21:53 | NUR ---
Per Poison controll they are requesting a 2nd EKG to assess QT length.
--- NOTE | 2019-08-13 23:44 | NUR ---
The patient was up to use the bedside commode with assist. RT staff have set her Cpap up and she currently appears to be resting comfortably.
--- NOTE | 2019-08-14 01:08 | NUR ---
The patient appears to be sleeping comfortably. CPAP from home being used with supplemental O2. The patient's HR is 104 and her O2 sats are 94%
--- NOTE | 2019-08-14 03:31 | NUR ---
The patient appears to be asleep
--- NOTE | 2019-08-14 05:34 | NUR ---
The patient is awake and alert. O2 sats are 96% on room air and the oxygen was discontinued.
--- NOTE | 2019-08-14 06:30 | NUR ---
Patient sleeping soundly on right side. No distress observed. Continue to monitor.
--- NOTE | 2019-08-14 07:05 | NUR ---
Patient up to bedside commode. No distress observed. Continue to monitor.
--- NOTE | 2019-08-14 08:15 | NUR ---
Patient sitting up and eating. No distress observed. Continue to monitor.
--- NOTE | 2019-08-14 10:05 | NUR ---
Patient ambulatory to BR, steady gait. No distress observed. Continue to monitor.
[2019-08-14] MEDS ORDERED: LEVO100T PO (12:21)
[2019-08-14] MEDS ORDERED: GEMF600T89 PO (12:21)
[2019-08-14] MEDS ORDERED: LURA40TA3 PO (12:21)
[2019-08-14] MEDS ORDERED: LORA-512 PO (12:21)
[2019-08-14] MEDS ORDERED: CYCL-1 PO (12:21)
[2019-08-14] MEDS ORDERED: GABA-532 PO (12:21)
[2019-08-14] MEDS ORDERED: ACET-1133 PO (12:21)
[2019-08-14] MEDS ORDERED: CYAN1TAB41 PO (12:21)
[2019-08-14] MEDS ORDERED: QUET50TA PO (12:21)
[2019-08-14] MEDS ORDERED: TRAZ-219 PO (12:21)
[2019-08-14] MEDS ORDERED: BUPR300T54 PO (12:21)
[2019-08-14] MEDS ORDERED: PANT40TA4 PO (12:21)
--- NOTE | 2019-08-14 12:27 | NUR ---
Pt laying on left side. No distress observed. Continue to monitor.
[2019-08-14] MEDS ORDERED: acetaminophen 325mg tablet PO PRN (12:40)
[2019-08-14] MEDS ORDERED: CYANOCOBALAMIN PO SCH (13:20)
[2019-08-14] MEDS ORDERED: FOLIC ACID PO SCH (13:20)
[2019-08-14] MEDS ORDERED: ibuprofen tablet 400 MG TABLET PO ONE ×2 (13:25→19:35)
[2019-08-14] MEDS ORDERED: acetaminophen 325mg tablet PO ONE (13:40)
[2019-08-14] MEDS ORDERED: traMADol 50MG tablet PO ONE (13:45)
--- NOTE | 2019-08-14 14:33 | NUR ---
visiting with patient. No distress observed. Continue to monitor.
[2019-08-14] MEDS ORDERED: LORazepam 1 MG tablet PO ONE (15:55)
--- NOTE | 2019-08-14 15:55 | NUR ---
Patient tearful and asked for anxiety medication. Patient states her just told her he wants a divorce. Patient said she begged him to wait but patient stated was going to sell the house and have [place]. Patient then started crying hard. RN to give patient medication for anxiety. Continue to monitor.
[2019-08-14] MEDS ORDERED: diphenhydrAMINE 25mg capsule PO ONE (17:30)
[2019-08-14] MEDS ORDERED: proCHLORperazine 10mg tablet PO ONE (17:30)
--- NOTE | 2019-08-14 17:43 | NUR ---
Patient complaining of HANEY. RN requested medication and gave pt Compazine and Benadryl. Continue to monitor.
--- NOTE | 2019-08-14 19:00 | NUR ---
Patient is low fowlers position in bed. She is alert and oriented. Patient states her headache is bothering her again. Patient complains of depression. She denies S/I, patient thinks her overdose was just a bad decision secondary to her drinking alcohol, not a real suicide attempt. "I just do stupid stuff when I drink." Patient is tearful. Her speech is soft and has regular rate and tone. Patient is cooperative with staff. The plan is to admit to [facility] later this evening. Patient ate her dinner. Her bed is in direct view from the nursing station.
--- NOTE | 2019-08-14 20:36 | NUR ---
relieving RN for break, [facility], Bridget ARMAS here to take pt upstairs, pt is calm and cooperative
[2019-08-15] MEDS ORDERED: pantoprazole 40mg Tablet.DR PO SCH (08:00)
[2019-08-15] MEDS ORDERED: loratadine 10mg tablet PO SCH (08:00)
[2019-08-15] MEDS ORDERED: levoTHYROXINE 100mcg tablet PO SCH (08:00)
[2019-08-15] MEDS ORDERED: buPROPion SR 150mg tablet PO SCH (08:00)
[2019-08-15] MEDS ORDERED: gabapentin 300mg capsule PO SCH (08:00)
[2019-08-15] MEDS ORDERED: acetaminophen 325mg tablet PO PRN (08:00)
[2019-08-15] MEDS ORDERED: gemfibrozil 600mg tablet PO SCH (08:00)
[2019-08-15] MEDS ORDERED: lurasidone 20mg tablet PO SCH (18:00)
[2019-08-15] MEDS ORDERED: traZODone 50mg tablet PO SCH (21:00)
[2019-08-15] MEDS ORDERED: cyclobenzaprine 10mg tablet PO PRN (21:00)
[2019-08-15] MEDS ORDERED: QUEtiapine 25mg tablet PO SCH (21:00)
== END 2019-08-14 20:43 ==
LOC: ER 09:52
DX: T50.992A Poisoning by other drugs, medicaments and biological substances, intentional self-harm, initial encounter (principal); T43.212A Poisoning by selective serotonin and norepinephrine reuptake inhibitors, intentional self-harm, initial encounter; T42.6X2A Poisoning by other antiepileptic and sedative-hypnotic drugs, intentional self-harm, initial encounter; G43.909 Migraine, unspecified, not intractable, without status migrainosus; E78.00 Pure hypercholesterolemia, unspecified; M19.90 Unspecified osteoarthritis, unspecified site; G89.29 Other chronic pain; F41.9 Anxiety disorder, unspecified; F32.9 Major depressive disorder, single episode, unspecified; G47.30 Sleep apnea, unspecified; F10.99 Alcohol use, unspecified with unspecified alcohol-induced disorder; Z90.710 Acquired absence of both cervix and uterus; Z98.890 Other specified postprocedural states; Z56.0 Unemployment, unspecified; Z88.6 Allergy status to analgesic agent; Z88.8 Allergy status to other drugs, medicaments and biological substances; Y92.89 Other specified places as the place of occurrence of the external cause; Y90.0 Blood alcohol level of less than 20 mg/100 ml
CPT/HCPCS: 36415; 80053; 80305; 80320; 80329; 81003; 81025; 83605; 83735; 84443; 84450; 84460; 85025; 93005; 94660; 96374; 99285; J2405; J7030; Q0163; Q0164

== ENCOUNTER 2019-08-14 19:32 | Inpatient (IN) | payer MEDICAID ==
[~2019-08-14] VITALS: Ht 162.6 cm; Wt 86.6 kg
[~2019-08-14 19:32] MED LIST changes: +ACET-1133 PO; -ATOR-2 PO; -BUPR150T8 PO; +BUPR300T54 PO; -CYAN100097 PO; +CYAN1TAB41 PO; +CYCL-1 PO; -CYCL10TA26 PO; +LORA-512 PO; -LORA10TA7 PO; -LURA20TA PO; +LURA40TA3 PO; -NALT50TA PO; +QUET50TA PO; -TRAM50TA2 PO; +TRAZ-219 PO; -TRAZ-251 PO
[2019-08-14] MEDS ORDERED: acetaminophen 325mg tablet PO PRN (21:35)
[2019-08-14] MEDS: cyclobenzaprine 10mg tablet PO PRN (22:11)
[2019-08-14] MEDS: pantoprazole 40mg Tablet.DR PO SCH (22:11)
[2019-08-14] MEDS: QUEtiapine 25mg tablet PO SCH (22:12)
[2019-08-14] MEDS: traMADol 50MG tablet PO PRN (22:12)
[2019-08-14] MEDS: LORazepam 1 MG tablet PO PRN (22:12)
[2019-08-14] MEDS: gabapentin 300mg capsule PO SCH (22:12)
[2019-08-14] MEDS: traZODone 50mg tablet PO SCH (22:12)
--- NOTE | 2019-08-14 22:28 | NUR ---
Nursing Progress Note: Legal hold:5150 Client on voluntary/involuntary status for danger to self Report received from nurse with use of SBAR Why are they here: The patient is a 53 year old female admitted to [facility] from the ER. She is on a 5150 after she became intoxicated and took an overdose of medications at home and was found by her who then called EMS. On presentation to the ER her BA was 0.353. She has a history of chronic alcohol use and hx of numerous suicide attempts by taking overdoses. Her last admit to [facility] was in November of this year. She reports that she has been binge drinking. Her of 17 years told her earlier in the day that he was going to seek a divorce. Her father in April of this year. Medical problems include; GERD, Obesity, Hypothyroidism, sleep apnea and uses a CPAP, chronic pain, orthopedic surgeries. Assessment What has happened this shift: The patient presented as very pleasant and was cooperative with the intake assessment. She complained of a severe headache that was unresolved by medications received in the ER and she was given Ultram with her HS medications. She was also had mild tremors, high anxiety, She denies any auditory or visual hallucinations. She is fully oriented. HR of 96 and her BP was 157/78 and she was given Ativan for ETOH withdrawals. She denies actively feeling suicidal on admit but feels she has destroyed everything in her life. She stated that she feels her kids don't want to talk to her and her is asking for a divorce. S/I, H/I: The patient denies A/VH: none reported or observed Sleep:[] ADL's: She is able to independently take care of her ADLs but declined offer of shower on arrival to the unit because of her headache. Group attendance:[] Were meds taken: The patient is taking medications as prescribed Any med S/E none at this time Mental Status Exam Appearance: She appears older than her stated age. She appears disheveled. Eye contact: WNL Behavior: Cooperative and pleasant Speech: spontaneous, moderate rate and rhythm Mood: Depressed, helpless and hopeless. High anxiety Affect: Pensive Thought process: Linear and logical. Thought Content: Situational difficulties. Quilt and shame over her ETOH use and taking the overdose. Cognition: Alert, oriented Insight: Fair Judgment: Fair Interventions PRN's used: Ultram, Flexeril, Ativan Therapeutic interventions: One to one with the patient and discussed the plan of care and made her aware of medications ordered. Severity of depressive symptoms and self harm risk assessed. Restraints/seclusion/emergency medication:[] Justification of Continued Inpatient Treatment: The patient had a serious overdose while intoxicated and is feeling very helpless/hopeless and is at risk for self harm if released.
[2019-08-15] MEDS ORDERED: mag hydrox/Alum hydrox/simeth 30ml oral suspension PO PRN (05:40)
[2019-08-15] MEDS ORDERED: loperamide 2mg capsule PO PRN (05:40)
[2019-08-15] MEDS ORDERED: magnesium hydroxide 30ml (MOM) UD suspension PO PRN (05:40)
[2019-08-15 07:57] VITALS: BP 112/67
[2019-08-15] MEDS ORDERED: gabapentin 300mg capsule PO SCH (08:00)
[2019-08-15] MEDS ORDERED: pantoprazole 40mg Tablet.DR PO SCH (08:00)
[2019-08-15] MEDS: gemfibrozil 600mg tablet PO SCH ×2 (08:14→21:10)
[2019-08-15] MEDS: loratadine 10mg tablet PO SCH (08:15)
[2019-08-15] MEDS: gabapentin 300mg capsule PO SCH ×3 (08:15→21:09)
[2019-08-15] MEDS: pantoprazole 40mg Tablet.DR PO SCH ×2 (08:15→21:10)
[2019-08-15] MEDS: buPROPion SR 150mg tablet PO SCH ×2 (08:15→21:11)
[2019-08-15] MEDS: levoTHYROXINE 100mcg tablet PO SCH (08:15)
[2019-08-15] MEDS: vitamin B comp w/Vit. C tab 1 TAB TABLET PO SCH (08:15)
[2019-08-15] MEDS: LORazepam 1 MG tablet PO PRN ×2 (08:19→14:41)
[2019-08-15] MEDS: traMADol 50MG tablet PO PRN (08:20)
[2019-08-15] MEDS ORDERED: LORazepam 1 MG tablet PO ONE (12:00)
--- NOTE | 2019-08-15 14:52 | NUR ---
Completed Ct's Psychosocial and SA assessments. Ct was tearful and appeared hopeless. She reported her threatened divorce after she overdosed this time. She reported her father in April and she relapsed. She has a lot of guilt and shame regarding her alcohol use. Addendum: 08/15/19 at 1453 by Daniela Newton SS Amended: Links added.
--- NOTE | 2019-08-15 17:41 | NUR ---
Nursing Progress Note: [facility] Legal hold: 5150 Client on voluntary/involuntary status for DTS Report received from nurse Shanae Harper RN with use of SBAR Why are they here: The patient is a 53 year old female admitted to [facility] from the ER. She is on a 5150 after she became intoxicated and took an overdose of medications at home and was found by her who then called EMS. On presentation to the ER her BA was 0.353. She has a history of chronic alcohol use and hx of numerous suicide attempts by taking overdoses. Her last admit to [facility] was in November of this year. She reports that she has been binge drinking. Her of 17 years told her earlier in the day that he was going to seek a divorce. Her father in April of this year. Medical problems include; GERD, Obesity, Hypothyroidism, sleep apnea and uses a CPAP, chronic pain, orthopedic surgeries. Assessment What has happened this shift: The patient presented as tired but pleasant. CIWA started this AM. Score of 14 at 0730, 10 at 1130. She complained of a headache and anxiety and requested PRN's. Ultram & Ativan was administered with AM medications. She also had mild tremors of her hands bilaterally. She denies any auditory or visual hallucinations. She reports feeling depressed by the current state of her life and reports feeling of hopelessness. Two hours after initial Ativan pt was requesting more, reporting overwhelming anxiety and continued tremors bilaterally. One time verbal order was given by Jason JOHNSON. She stated, "My kids don't want to talk to me" and reports her is now asking for a divorce which is very distressing for her. She last spoke with her on the phone yesterday and believes he is serious about wanting the divorce. She is tearful while speaking with this ad copy writer. She reports she wants to stop drinking alcohol but that it is difficult. Reports she has attended [facility] two times, one rehab in [place] and has a therapist that she sees weekly. Also attends AA and has had a sponsor. S/I, H/I: The patient denies, but reports depression sx A/VH: none reported or observed Sleep: 7hrs NOC ADL's: Independent Group attendance: No, encouraged but denied wanting to go. Were meds taken: compliant with AM meds & PRNs Any med S/E: none at this time Mental Status Exam Appearance: She appears older than her stated age. She appears disheveled. Eye contact: Direct Behavior: Cooperative and pleasant Speech: Normal rate and rhythm, soft Mood: Depressed, helpless, hopeless, anxious Affect: Tired Thought process: Linear and logical Thought Content: Situational difficulties. Quilt and shame over her ETOH and OD Cognition: Alert, oriented Insight: Fair Judgment: Fair Interventions PRN's used: Ultram X1, Ativan X2 Therapeutic interventions: One to one with the patient and discussed the plan of care and made her aware of medications ordered. Severity of depressive symptoms and self harm risk assessed. Restraints/seclusion/emergency medication: Justification of Continued Inpatient Treatment: The patient had a serious overdose while intoxicated and is feeling very helpless/hopeless and is at risk for self harm if released.
[2019-08-15] MEDS: nicotine 21mg patch - 24 hr TD SCH (17:48)
[2019-08-15] MEDS: lurasidone 20mg tablet PO SCH (17:56)
[2019-08-15 20:00] VITALS: BP 144/71
[2019-08-15] MEDS ORDERED: QUEtiapine 25mg tablet PO SCH (21:00)
[2019-08-15] MEDS ORDERED: traZODone 50mg tablet PO SCH (21:00)
[2019-08-15] MEDS: traZODone 50mg tablet PO SCH (21:09)
[2019-08-15] MEDS: QUEtiapine 25mg tablet PO SCH (21:10)
[2019-08-16] MEDS: LORazepam 1 MG tablet PO PRN ×3 (01:43→15:26)
--- NOTE | 2019-08-16 01:57 | NUR ---
Nursing Progress Note: [facility] Legal hold: 5150 Client on voluntary/involuntary status for DTS Report received from nurse Lakia RN with use of SBAR Why are they here: The patient is a 53 year old female admitted to [facility] from the ER. She is on a 5150 after she became intoxicated and took an overdose of medications at home and was found by her who then called EMS. On presentation to the ER her BA was 0.353. She has a history of chronic alcohol use and hx of numerous suicide attempts by taking overdoses. Her last admit to [facility] was in November of this year. She reports that she has been binge drinking. Her of 17 years told her earlier in the day that he was going to seek a divorce. Her father in April of this year. Medical problems include; GERD, Obesity, Hypothyroidism, sleep apnea and uses a CPAP, chronic pain, orthopedic surgeries. Assessment What has happened this shift: This patient is isolating in her room following shift change. She is well oriented and cooperative with staff. Patient states she has anxiety with some shaking. Patient is anxious about her coming to visit [facility]. Patient states she is depressed because she is unsure if her marriage is going to work out. Patient denies S/I or S/I. some depression is present. No hallucinations. Patient is cooperative with staff and medication compliant. Her affect is blunted. The patient is reminded that she is in a safe place. S/I, H/I: Denies. A/VH: None. Sleep: Will tally this am. ADL's: Independent. Group attendance: Patient stated she didn't attend on day shift. Were meds taken: Medication compliant. Any med S/E: None. Mental Status Exam Appearance: She appears older than her stated age. She appears disheveled. Eye contact: Direct Behavior: Cooperative and pleasant Speech: Normal rate and rhythm, soft Mood: Depressed, helpless, hopeless, anxious Affect: Tired Thought process: Linear. Thought Content: Situational difficulties. Anxious about her marriage and future. Cognition: Alert and oriented X4. Insight: Fair Judgment: Fair Interventions PRN's used: Ativan. Therapeutic interventions: One to one with the patient and discussed the plan of care and made her aware of medications ordered. Severity of depressive symptoms and self harm risk assessed. Restraints/seclusion/emergency medication: Justification of Continued Inpatient Treatment: The patient had a serious overdose while intoxicated and is feeling very helpless/hopeless and is at risk for self harm if released.
[2019-08-16 07:37] VITALS: BP 132/75
[2019-08-16] MEDS: pantoprazole 40mg Tablet.DR PO SCH ×2 (08:08→20:20)
[2019-08-16] MEDS: gabapentin 300mg capsule PO SCH ×3 (08:08→20:19)
[2019-08-16] MEDS: vitamin B comp w/Vit. C tab 1 TAB TABLET PO SCH (08:08)
[2019-08-16] MEDS: gemfibrozil 600mg tablet PO SCH ×2 (08:08→20:19)
[2019-08-16] MEDS: loratadine 10mg tablet PO SCH (08:08)
[2019-08-16] MEDS: nicotine 21mg patch - 24 hr TD SCH (08:08)
[2019-08-16] MEDS: buPROPion SR 150mg tablet PO SCH ×2 (08:09→20:20)
[2019-08-16] MEDS: levoTHYROXINE 100mcg tablet PO SCH (08:09)
[2019-08-16 09:47] LABS: CHOL/HDL RATIO 3.3 (0.00-4.99); CHOLESTEROL 231 MG/DL (0-200); HDL CHOLESTEROL 69 MG/DL (35-60); LDL CHOLESTEROL 127 MG/DL (50-100); TRIGLYCERIDES 274 MG/DL (20-135)
[2019-08-16] MEDS ORDERED: LORazepam 1 MG tablet PO ONE (11:40)
--- NOTE | 2019-08-16 15:10 | NUR ---
Nursing Progress Note: [facility] Legal hold: 5150 Client on voluntary/involuntary status for DTS Report received from nurse Shanae Harper RN with use of SBAR Why are they here: The patient is a 53 year old female admitted to [facility] from the ER. She is on a 5150 after she became intoxicated and took an overdose of medications at home and was found by her who then called EMS. On presentation to the ER her BA was 0.353. She has a history of chronic alcohol use and hx of numerous suicide attempts by taking overdoses. Her last admit to [facility] was in November of this year. She reports that she has been binge drinking. Her of 17 years told her earlier in the day that he was going to seek a divorce. Her father in April of this year. Medical problems include; GERD, Obesity, Hypothyroidism, sleep apnea and uses a CPAP, chronic pain, orthopedic surgeries. Assessment What has happened this shift: The patient presented as anxious this morning. CIWA score has lowered to 8 this AM. Pt's main complaint is anxiety and she requested PRN's. Ativan was administered with AM medications. Her hand tremors have lessened today but she still appears tearful about her circumstances. She visited with her during AM visit and requested Ativan after said visit. Once time order was given by Sony JOHNSON. She denies any auditory or visual hallucinations. She reports feeling depressed by the current state of her life and reports feeling of hopelessness. She reports she wants to stop drinking alcohol but that it is difficult. Reports her plan for drinking cessation is to attend an extra therapy meeting per week (total of 3 days per week). S/I, H/I: The patient denies, but reports depression sx A/VH: none reported or observed Sleep: 7.5 hrs NOC ADL's: Independent Group attendance: N/A Were meds taken: compliant with AM meds & PRNs Any med S/E: none at this time Mental Status Exam Appearance: She appears older than her stated age. She appears disheveled. Eye contact: Direct Behavior: Cooperative and pleasant Speech: Normal rate and rhythm, soft Mood: Depressed, helpless, hopeless, anxious Affect: Tired Thought process: Linear and logical Thought Content: Situational difficulties. Quilt and shame over her ETOH and OD Cognition: Alert, oriented Insight: Fair Judgment: Fair Interventions PRN's used: Ativan X1 Therapeutic interventions: One to one with the patient and discussed the plan of care and made her aware of medications ordered. Severity of depressive symptoms and self harm risk assessed. Restraints/seclusion/emergency medication: Justification of Continued Inpatient Treatment: The patient had a serious overdose while intoxicated and is feeling very helpless/hopeless and is at risk for self harm if released.
[2019-08-16] MEDS: lurasidone 20mg tablet PO SCH (17:37)
[2019-08-16 19:00] VITALS: BP 137/79
--- NOTE | 2019-08-16 19:34 | NUR ---
Nursing Progress Note: [facility] Legal hold: 5150 Client on voluntary/involuntary status for DTS Report received from nurse Lakia RN with use of SBAR Why are they here: The patient is a 53 year old female admitted to [facility] from the ER. She is on a 5150 after she became intoxicated and took an overdose of medications at home and was found by her who then called EMS. On presentation to the ER her BA was 0.353. She has a history of chronic alcohol use and hx of numerous suicide attempts by taking overdoses. Her last admit to [facility] was in November of this year. She reports that she has been binge drinking. Her of 17 years told her earlier in the day that he was going to seek a divorce. Her father in April of this year. Medical problems include; GERD, Obesity, Hypothyroidism, sleep apnea and uses a CPAP, chronic pain, orthopedic surgeries. Assessment What has happened this shift: Patient is isolating in her room. She speaks quietly to this magnetic tape typewriter operator. She is well oriented and tearful. Patient states a mentor from her [employer]ec[employer]alism is going to visit her tonight. Patient states the mentor is helping her with her sobriety. The mentor is giving her one last chance, this is the patient has been dishonest with the mentor in the past about her alcoholism. The patient denies S/I, H/I, or any hallucinations. Subjective depression and a blunt affect continues. This patient states she has made a decision to deal with her alcoholism. Patient states her may divorce her despite her desire to change. The patient is compliant with medications. S/I, H/I: Denies. A/VH: None reported or observed. Sleep: Resting in room at time of this writing. ADL's: Independent. Group attendance: N/A Were meds taken: Patient is medication compliant. Any med S/E: None noted. Mental Status Exam Appearance: Patient appears older than her stated age. She appears disheveled. Eye contact: Direct. Behavior: Cooperative and pleasant. Speech: Normal rate and rhythm, and tone. Mood: Depressed, helpless, hopeless, anxious Affect: Tired Thought process: Linear. Thought Content: Situational difficulties. Quilt and shame over her ETOH and OD Cognition: Alert and oriented X4. Insight: Fair Judgment: Fair Interventions PRN's used: Non on NOC shift at this time. Therapeutic interventions: One to one with the patient and discussed the plan of care and made her aware of medications ordered. Severity of depressive symptoms and self harm risk assessed. Restraints/seclusion/emergency medication: Justification of Continued Inpatient Treatment: The patient had a serious overdose while intoxicated and is feeling very helpless/hopeless and is at risk for self harm if released.
[2019-08-16] MEDS: traZODone 50mg tablet PO SCH (20:19)
[2019-08-16] MEDS: QUEtiapine 25mg tablet PO SCH (20:20)
[2019-08-17] MEDS: LORazepam 1 MG tablet PO PRN ×3 (04:22→16:34)
[2019-08-17 07:53] VITALS: BP 117/68
[2019-08-17] MEDS: gemfibrozil 600mg tablet PO SCH (08:36)
[2019-08-17] MEDS: loratadine 10mg tablet PO SCH (08:36)
[2019-08-17] MEDS: vitamin B comp w/Vit. C tab 1 TAB TABLET PO SCH (08:36)
[2019-08-17] MEDS: pantoprazole 40mg Tablet.DR PO SCH (08:36)
[2019-08-17] MEDS: gabapentin 300mg capsule PO SCH ×2 (08:36→12:54)
[2019-08-17] MEDS: buPROPion SR 150mg tablet PO SCH (08:36)
[2019-08-17] MEDS: levoTHYROXINE 100mcg tablet PO SCH (08:36)
[2019-08-17] MEDS: nicotine 21mg patch - 24 hr TD SCH (08:37)
[2019-08-17] MEDS: traMADol 50MG tablet PO PRN ×3 (09:14→17:38)
[2019-08-17] MEDS: cyclobenzaprine 10mg tablet PO PRN (12:14)
[2019-08-17] MEDS ORDERED: NICO-687 TD (16:34)
[2019-08-17] MEDS: lurasidone 20mg tablet PO SCH (17:38)
--- NOTE | 2019-08-17 18:07 | NUR ---
Nursing Progress Note: Legal hold: 5150 Client on voluntary/involuntary status for DTS Report received from nurse Lakia RN with use of SBAR Why are they here: The patient is a 53 year old female admitted to [facility] from the ER. She is on a 5150 after she became intoxicated and took an overdose of medications at home and was found by her who then called EMS. On presentation to the ER her BA was 0.353. She has a history of chronic alcohol use and hx of numerous suicide attempts by taking overdoses. Her last admit to [facility] was in November of this year. She reports that she has been binge drinking. Her of 17 years told her earlier in the day that he was going to seek a divorce. Her father in April of this year. Medical problems include; GERD, Obesity, Hypothyroidism, sleep apnea and uses a CPAP, chronic pain, orthopedic surgeries. Assessment What has happened this shift: Patient is observed sleeping at change of shift. She wakes for breakfast, eats and then promptly returns to her room. She takes her medications without issue. Patient states that she is not suicidal and only feels that way she drinks. She understands that she has a drinking problem and plans to continue to seek support with this. She is tearful when discussing the possible end to her 16yr marriage because of her issues with alcohol. Patient states that she started drinking when her father passed. Patient reports anxiety and unresolved pain throughout the day, PRNS administered, patient requests for meds often. Patient states that she needs to go home because there is a lot of paper work she needs to take care of related to her fathers . Discharge set in process but not finished by change of shift. S/I, H/I: Denies A/VH: None reported or observed. Sleep: 8.75hrs NOC ADL's: Independent. Group attendance: N/A Were meds taken: Patient is medication compliant. Any med S/E: None noted. Mental Status Exam Appearance: Patient dressed appropriately in own clothing Eye contact: Direct. Behavior: Cooperative and pleasant. Speech: Normal rate/rhythm, and tone. Mood: Depressed, helpless, hopeless, anxious Affect: congruent to mood Thought process: Linear. Thought Content: Situational difficulties. Guilt/shame over her ETOH and OD, focused on PRN meds Cognition: Alert and oriented X4. Insight: Fair Judgment: Fair Interventions PRN's used: Ativan, Ultram Therapeutic interventions: One to one with the patient and discussed the plan of care and made her aware of medications ordered. Severity of depressive symptoms and self harm risk assessed. Restraints/seclusion/emergency medication: Justification of Continued Inpatient Treatment: The patient had a serious overdose while intoxicated and is feeling very helpless/hopeless and is at risk for self harm if released.
--- NOTE | 2019-08-17 18:30 | NUR ---
DISCHARGE NOTE Patient states readiness for discharge, denies S/I. Nicotine replacement prescriptions called in to [facility]. Patient's belongings returned to her, signed inventory sheet. Does not appear to be in any physical or emotional distress at time of discharge. Reviewed discharge instructions with patient, and given community resource sheets. Patient picked up by her and transported home.
== END 2019-08-17 18:30 | disposition home or self-care (01) | DRG 751 ==
LOC: ADULT MH 19:32
PROVIDERS: ADMIT Psychiatry & Neurology Psychiatry; ATTEND Psychiatry & Neurology Psychiatry
DX: F33.9 Major depressive disorder, recurrent, unspecified (principal); R45.851 Suicidal ideations; E03.9 Hypothyroidism, unspecified; E78.00 Pure hypercholesterolemia, unspecified; E78.5 Hyperlipidemia, unspecified; Z96.643 Presence of artificial hip joint, bilateral; G89.29 Other chronic pain; F10.20 Alcohol dependence, uncomplicated; M19.90 Unspecified osteoarthritis, unspecified site; M54.9 Dorsalgia, unspecified; K21.9 Gastro-esophageal reflux disease without esophagitis; R21 Rash and other nonspecific skin eruption; G47.33 Obstructive sleep apnea (adult) (pediatric); Z72.0 Tobacco use; Z79.890 Hormone replacement therapy; Z85.41 Personal history of malignant neoplasm of cervix uteri; Z85.828 Personal history of other malignant neoplasm of skin; Z85.89 Personal history of malignant neoplasm of other organs and systems; Z87.11 Personal history of peptic ulcer disease; Z87.19 Personal history of other diseases of the digestive system; Z90.711 Acquired absence of uterus with remaining cervical stump; Z79.899 Other long term (current) drug therapy
CPT/HCPCS: 36415; 80061; 83036; 87081

== ENCOUNTER 2019-08-26 12:59 | Emergency (ER) | payer MEDICAID ==
[~2019-08-26] VITALS: Ht 162.6 cm; Wt 85.9 kg
[~2019-08-26 12:59] MED LIST changes: +NICO-687 TD
[2019-08-26] MEDS ORDERED: cyclobenzaprine 10mg tablet PO ONE (13:40)
[2019-08-26] MEDS ORDERED: acetaminophen 325mg tablet PO ONE (13:40)
--- NOTE | 2019-08-26 13:57 | NUR ---
pt came from [facility] at bedside.medicated the pt as per md orders.
[2019-08-26 15:28] VITALS: BP 102/54
--- NOTE | 2019-08-26 15:31 | NUR ---
transporting pt to [facility]'s badge number is #[id number]. The case number is #[id number].
== END 2019-08-26 15:15 ==
LOC: ER 13:00
DX: S16.1XXA Strain of muscle, fascia and tendon at neck level, initial encounter (principal); G89.29 Other chronic pain; G43.909 Migraine, unspecified, not intractable, without status migrainosus; E78.00 Pure hypercholesterolemia, unspecified; G47.30 Sleep apnea, unspecified; M19.90 Unspecified osteoarthritis, unspecified site; F41.9 Anxiety disorder, unspecified; F32.9 Major depressive disorder, single episode, unspecified; F17.200 Nicotine dependence, unspecified, uncomplicated; F10.99 Alcohol use, unspecified with unspecified alcohol-induced disorder; Z90.710 Acquired absence of both cervix and uterus; Z98.890 Other specified postprocedural states; Z56.0 Unemployment, unspecified; Z88.6 Allergy status to analgesic agent; Z88.8 Allergy status to other drugs, medicaments and biological substances; Z79.899 Other long term (current) drug therapy; V89.2XXA Person injured in unspecified motor-vehicle accident, traffic, initial encounter; Y93.89 Activity, other specified; Y92.488 Other paved roadways as the place of occurrence of the external cause; Y99.8 Other external cause status; Y90.9 Presence of alcohol in blood, level not specified
CPT/HCPCS: 72040; 99284

== ENCOUNTER 2019-09-11 14:08 | Inpatient (IN) | payer MEDICAID ==
[~2019-09-11] VITALS: Ht 162.6 cm; Wt 82.0 kg
[2019-09-11] MEDS ORDERED: ondansetron 4mg rapidly disintigrating tab PO ONE (15:05)
[2019-09-11] MEDS ORDERED: ondansetron/PF 4mg/2ml inj IV ONE (15:20)
[2019-09-11] MEDS ORDERED: normal saline 1000ML IV soln IVB ONE (15:25)
[2019-09-11] MEDS ORDERED: LORazepam 2 mg/ml vial IV ONE (15:25)
[2019-09-11] MEDS ORDERED: thiamine inj. 100 MG, MVI, adult No.4 with vit. K 10 ML in dextrose 5% water 500ml 489 ML IV SCH ×3 (15:25)
[2019-09-11 16:05] LABS: BASOPHILS # (AUTO) 0.1 X10'3 (0-0.2); BASOPHILS % (AUTO) 1.2 % (0-1); EOSINOPHILS % (AUTO) 0.5 % (0-6); HEMATOCRIT 44.1 % (35.0-45.0); HEMOGLOBIN 14.9 g/dl (12.0-16.0); LYMPHOCYTES # (AUTO) 1.3 X10'3 (1.1-4.8); LYMPHOCYTES % (AUTO) 28.8 % (21-51); MEAN CORPUSCULAR HEMOGLOBIN 31.6 PG (27.0-31.0); MEAN CORPUSCULAR HGB CONC 33.8 g/dL (33.0-36.5); MEAN CORPUSCULAR VOLUME 93.5 FL (78-98); MONOCYTES # (AUTO) 0.4 X10'3 (0-0.9); MONOCYTES % (AUTO) 9.2 % (2-12); NEUTROPHILS # (AUTO) 2.7 X10'3 (1.8-7.7); NEUTROPHILS % (AUTO) 60.3 % (42-75); PLATELET COUNT 241 X10'3 (140-440); RED BLOOD COUNT 4.72 X10'6 (4.20-5.60); RED CELL DISTRIBUTION WIDTH 14.6 % (11.5-14.5); WHITE BLOOD COUNT 4.5 X10'3 (4.5-11.0)
[2019-09-11 16:11] LABS: PARTIAL THROMBOPLASTIN TIME 27 SECONDS (22-32)
[2019-09-11 16:13] LABS: ALANINE AMINOTRANSFERASE 136 U/L (12-78); ALBUMIN/GLOBULIN RATIO 1.1 (1.1-1.5); ALKALINE PHOSPHATASE 153 IU/L (46-116); ANION GAP 16 (8-16); ASPARTATE AMINO TRANSFERASE 156 U/L (10-37); BILIRUBIN,TOTAL 0.6 MG/DL (0.1-1.0); BLOOD UREA NITROGEN 16 MG/DL (7-18); BUN/CREATININE RATIO 23.2 (6.6-38.0); CALCIUM 7.9 MG/DL (8.5-10.1); CHLORIDE 101 MMOL/L (99-107); CREATININE 0.69 MG/DL (0.40-0.90); ETHANOL 0.283 GM/DL (0.0-0.010); GLUCOSE 106 MG/DL (70-104); LIPASE 145 U/L (73-393); SODIUM 139 MMOL/L (135-145); TOTAL CARBON DIOXIDE 21.7 MMOL/L (24-32); TOTAL PROTEIN 7.8 G/DL (6.4-8.2); eGFR 89 ML/MIN
[2019-09-11 16:19] LABS: POTASSIUM 3.3 MMOL/L (3.5-5.1)
[2019-09-11] MEDS: MVI, adult No.4 with vit. K 10 ML in dextrose 5% water 500ml 490 ML IV SCH ×2 (16:19)
[2019-09-11] MEDS: thiamine inj. 100 MG in normal saline 100ml IV soln 99 ML IV SCH (16:20)
--- NOTE | 2019-09-11 16:21 | NUR ---
relieving RN for break, pt is resting quietly on gurney, resp even and unlabored, slightly shaky, pt is here for alcohol withdrawal, last drink was the am, family at bedside
[2019-09-11] MEDS ORDERED: ATOR-2 PO (16:38)
[2019-09-11] MEDS ORDERED: NICO-687 TOP (16:38)
[2019-09-11] MEDS ORDERED: haloperidol lactate 5mg/ml inj IM PRN (17:50)
[2019-09-11] MEDS ORDERED: diphenhydrAMINE 25mg capsule PO PRN (17:50)
[2019-09-11] MEDS ORDERED: thiamine 100mg/ml 2ml inj. IV ONE (17:50)
[2019-09-11] MEDS ORDERED: metoclopramide 5 mg/ml inj IV PRN (17:50)
[2019-09-11] MEDS ORDERED: potassium CL 10mEq/100ml bag 100 ML IV PRN ×2 (17:50)
[2019-09-11] MEDS ORDERED: bisacodyl 10mg suppository rectal RC PRN (17:50)
[2019-09-11] MEDS ORDERED: mag hydrox/Alum hydrox/simeth 30ml oral suspension PO PRN ×2 (17:50)
[2019-09-11] MEDS ORDERED: diphenhydrAMINE 50 mg/ml inj IV PRN (17:50)
[2019-09-11] MEDS ORDERED: magnesium Cl slow-release 64mg tablet PO PRN (17:50)
[2019-09-11] MEDS ORDERED: loperamide 2mg capsule PO PRN (17:50)
[2019-09-11] MEDS ORDERED: cloNIDine 0.1 mg tablet PO PRN (17:50)
[2019-09-11] MEDS ORDERED: dicyclomine 10 MG capsule PO PRN (17:50)
[2019-09-11] MEDS ORDERED: haloperidol 5mg tablet PO PRN (17:50)
[2019-09-11] MEDS ORDERED: K and/or MAG REPLACEMENT MC SCH (17:50)
[2019-09-11] MEDS ORDERED: dextrose 50%-water 50ml dispensing syringe IV PRN (17:50)
[2019-09-11] MEDS ORDERED: magnesium hydroxide 30ml (MOM) UD suspension PO PRN (17:50)
[2019-09-11] MEDS ORDERED: HYDROcodone/acetaminophen 5mg/325mg tablet PO PRN (17:50)
[2019-09-11] MEDS ORDERED: cyclobenzaprine 10mg tablet PO PRN (17:50)
[2019-09-11] MEDS ORDERED: acetaminophen 325mg tablet PO PRN ×2 (17:50)
[2019-09-11] MEDS ORDERED: potassium Cl 20 mEq SR tablet PO PRN ×2 (17:50)
[2019-09-11] MEDS ORDERED: morphine 2 MG/ML inj. syringe IV PRN ×2 (17:50)
[2019-09-11] MEDS ORDERED: ondansetron/PF 4mg/2ml inj IV PRN (17:50)
[2019-09-11] MEDS ORDERED: magnesium 2GM in 50ml NS 50 ML IV PRN (17:50)
[2019-09-11] MEDS ORDERED: magnesium 4gm in 100ml NS 100 ML IV PRN (17:50)
[2019-09-11] MEDS ORDERED: acetaminophen 650mg rectal suppository RC PRN (17:50)
[2019-09-11 19:00] VITALS: BP 134/81
[2019-09-11] MEDS: HYDROcodone/acetaminophen 10/325mg tab PO PRN (20:30)
[2019-09-11] MEDS: gemfibrozil 600mg tablet PO SCH (20:31)
[2019-09-11] MEDS: buPROPion SR 150mg tablet PO SCH (20:31)
[2019-09-11] MEDS: pantoprazole 40mg Tablet.DR PO SCH (20:31)
[2019-09-11] MEDS: heparin, porcine 5000 units/ml vial SQ SCH (20:32)
[2019-09-11] MEDS: nicotine 21mg patch - 24 hr TD SCH (20:39)
[2019-09-11] MEDS: dextrose 5%-normal saline 1,000 ML IV SCH (20:40)
[2019-09-11] MEDS ORDERED: QUEtiapine 25mg tablet PO SCH (21:00)
[2019-09-11] MEDS ORDERED: gabapentin 300mg capsule PO SCH (21:00)
[2019-09-11] MEDS ORDERED: traZODone 50mg tablet PO SCH (21:00)
[2019-09-12] VITALS: BP 103/70
[2019-09-12] MEDS: LORazepam 2 mg/ml vial IV PRN ×4 (01:56→15:06)
[2019-09-12] MEDS: dextrose 5%-normal saline 1,000 ML IV SCH (04:29)
[2019-09-12 05:48] LABS: BASOPHILS % (AUTO) 0.8 % (0-1); EOSINOPHILS # (AUTO) 0.1 X10'3 (0-0.9); EOSINOPHILS % (AUTO) 1.9 % (0-6); LYMPHOCYTES # (AUTO) 1.3 X10'3 (1.1-4.8); MEAN CORPUSCULAR HEMOGLOBIN 32.2 PG (27.0-31.0); MEAN CORPUSCULAR HGB CONC 34.1 g/dL (33.0-36.5); MEAN CORPUSCULAR VOLUME 94.5 FL (78-98); MEAN PLATELET VOLUME 6.8 FL (7.4-10.4); MONOCYTES # (AUTO) 0.5 X10'3 (0-0.9); MONOCYTES % (AUTO) 11.6 % (2-12); NEUTROPHILS # (AUTO) 2.2 X10'3 (1.8-7.7); NEUTROPHILS % (AUTO) 53.7 % (42-75); PLATELET COUNT 150 X10'3 (140-440); RED BLOOD COUNT 4.02 X10'6 (4.20-5.60); RED CELL DISTRIBUTION WIDTH 14.5 % (11.5-14.5); WHITE BLOOD COUNT 4.2 X10'3 (4.5-11.0)
--- NOTE | 2019-09-12 06:00 | NUR ---
Patient in room [facility]. I have received report from DIANE ARMAS and had the opportunity to ask questions and assume patient care.
[2019-09-12 06:10] LABS: ALBUMIN/GLOBULIN RATIO 0.9 (1.1-1.5); AMYLASE 21 U/L (25-115); ANION GAP 19 (8-16); BILIRUBIN,TOTAL 0.6 MG/DL (0.1-1.0); BLOOD UREA NITROGEN 14 MG/DL (7-18); BUN/CREATININE RATIO 22.2 (6.6-38.0); CALCIUM 6.8 MG/DL (8.5-10.1); CHLORIDE 103 MMOL/L (99-107); CHOL/HDL RATIO 3.8 (0.00-4.99); CHOLESTEROL 147 MG/DL (0-200); CREATININE 0.63 MG/DL (0.40-0.90); HDL CHOLESTEROL 39 MG/DL (35-60); LDL CHOLESTEROL 28 MG/DL (50-100); MAGNESIUM 1.5 MG/DL (1.5-2.4); SODIUM 139 MMOL/L (135-145); TOTAL CARBON DIOXIDE 16.7 MMOL/L (24-32); TOTAL PROTEIN 6.2 G/DL (6.4-8.2); eGFR > 90 ML/MIN
[2019-09-12 06:13] LABS: GLUCOSE 92 MG/DL (70-104); PHOSPHORUS 2.8 MG/DL (2.3-4.5); POTASSIUM 3.2 MMOL/L (3.5-5.1); TRIGLYCERIDES 1120 MG/DL (20-135)
--- NOTE | 2019-09-12 06:42 | NUR ---
Problems reprioritized. Patient report given, questions answered & plan of care reviewed with Lexie ARMAS.
[2019-09-12 06:57] LABS: ALANINE AMINOTRANSFERASE 110 U/L (12-78); ASPARTATE AMINO TRANSFERASE 137 U/L (10-37)
[2019-09-12 07:02] LABS: ALKALINE PHOSPHATASE 126 IU/L (46-116)
[2019-09-12] MEDS: gemfibrozil 600mg tablet PO SCH (07:46)
[2019-09-12] MEDS: pantoprazole 40mg Tablet.DR PO SCH (07:47)
[2019-09-12] MEDS: buPROPion SR 150mg tablet PO SCH (07:47)
[2019-09-12] MEDS: heparin, porcine 5000 units/ml vial SQ SCH (07:49)
[2019-09-12] MEDS: nicotine 21mg patch - 24 hr TD SCH (07:50)
[2019-09-12 08:00] VITALS: BP 141/79
[2019-09-12] MEDS: thiamine inj. 100 MG in normal saline 100ml IV soln 99 ML IV SCH (08:00)
[2019-09-12] MEDS ORDERED: multivitamins, therapeutics tablet PO SCH (08:00)
[2019-09-12] MEDS ORDERED: loratadine 10mg tablet PO SCH (08:00)
[2019-09-12] MEDS ORDERED: cyanocobalamin 500mcg tablet PO SCH (08:00)
[2019-09-12] MEDS ORDERED: lurasidone 20mg tablet PO SCH (08:00)
[2019-09-12] MEDS ORDERED: thiamine 100mg tablet PO SCH (08:00)
[2019-09-12] MEDS ORDERED: folic acid 1mg tablet PO SCH (08:00)
[2019-09-12] MEDS ORDERED: levoTHYROXINE 100mcg tablet PO SCH (08:00)
[2019-09-12] MEDS ORDERED: atorvastatin 20mg tablet PO SCH (08:00)
[2019-09-12] MEDS: HYDROcodone/acetaminophen 10/325mg tab PO PRN (08:11)
[2019-09-12] MEDS: MVI, adult No.4 with vit. K 10 ML in dextrose 5% water 500ml 490 ML IV SCH ×2 (09:59)
[2019-09-12 10:37] LABS: HIV ANTIBODY 1&2 RAPID NON-REACTIVE (Neg)
[2019-09-12] MEDS ORDERED: fenofibrate 145mg tablet PO SCH (11:35)
[2019-09-12 11:44] VITALS: BP 156/94
[2019-09-12] MEDS ORDERED: OMEG1CAP PO (12:04)
[2019-09-12] MEDS ORDERED: thiamine tablet PO (12:04)
[2019-09-12] MEDS ORDERED: folic acid tablet PO (12:04)
[2019-09-12] MEDS ORDERED: MULT-1179 PO (12:04)
[2019-09-12] MEDS ORDERED: ATOR20TA66 PO (12:05)
[2019-09-12] MEDS ORDERED: FENO145T36 PO (12:05)
[2019-09-12] MEDS ORDERED: omega-3 acid ethyl esters 1GM capsule PO SCH (20:00)
[2019-09-13 08:35] LABS: HBSAG SCREEN Negative (Negative); HEP A AB, IGM Negative (Negative); HEP B CORE AB, IGM Negative (Negative); HEPATITIS C ANTIBODY <0.1 s/co ratio (0.0-0.9)
[2019-09-13] MEDS ORDERED: LORazepam 1 MG tablet PO PRN (17:50)
[2019-09-13] MEDS ORDERED: LORazepam 2 mg/ml vial IV PRN (17:50)
[2019-09-15] MEDS ORDERED: LORazepam 1 MG tablet PO PRN (17:50)
[2019-09-15] MEDS ORDERED: LORazepam 2 mg/ml vial IV PRN (17:50)
== END 2019-09-12 16:55 | disposition home health service (06) | DRG 775 ==
LOC: ER 14:11 → ED HOLD 17:55 → SUR 3N 19:40
PROVIDERS: ADMIT Family Medicine; ATTEND Family Medicine
PROC: 5A09357 Assistance with Respiratory Ventilation, Less than 24 Consecutive Hours, Continuous Positive Airway Pressure (ICD-10-PCS; principal; 2019-09-12)
DX: F10.229 Alcohol dependence with intoxication, unspecified (principal); K70.10 Alcoholic hepatitis without ascites; G62.9 Polyneuropathy, unspecified; K76.0 Fatty (change of) liver, not elsewhere classified; E03.9 Hypothyroidism, unspecified; E78.00 Pure hypercholesterolemia, unspecified; E78.1 Pure hyperglyceridemia; E78.5 Hyperlipidemia, unspecified; E87.6 Hypokalemia; F10.230 Alcohol dependence with withdrawal, uncomplicated; Z96.643 Presence of artificial hip joint, bilateral; Z96.653 Presence of artificial knee joint, bilateral; G43.909 Migraine, unspecified, not intractable, without status migrainosus; F17.200 Nicotine dependence, unspecified, uncomplicated; F32.9 Major depressive disorder, single episode, unspecified; G89.29 Other chronic pain; M19.90 Unspecified osteoarthritis, unspecified site; M54.9 Dorsalgia, unspecified; F41.9 Anxiety disorder, unspecified; G47.33 Obstructive sleep apnea (adult) (pediatric); K21.9 Gastro-esophageal reflux disease without esophagitis; Z66 Do not resuscitate; Z79.890 Hormone replacement therapy; Z79.899 Other long term (current) drug therapy; Z87.11 Personal history of peptic ulcer disease; Z90.710 Acquired absence of both cervix and uterus; Z91.19 Patient's noncompliance with other medical treatment and regimen; Z88.8 Allergy status to other drugs, medicaments and biological substances; Z71.41 Alcohol abuse counseling and surveillance of alcoholic; Z71.6 Tobacco abuse counseling
CPT/HCPCS: 36415; 76700; 80053; 80061; 80320; 82150; 82948; 83690; 83735; 84100; 84443; 85025; 85610; 85730; 86703; 86705; 86706; 86709; 86803; 87081; 87340; 93306; 96365; 96375; 99285; G0378; J1644; J2060; J2270; J2405; J3411; J7042; J7060

== ENCOUNTER 2019-12-23 13:20 | Emergency (ER) | payer MEDICAID ==
[~2019-12-23] VITALS: Ht 162.6 cm; Wt 89.5 kg
[~2019-12-23 13:20] MED LIST changes: -ACET-1133 PO; +ATOR20TA66 PO; +BUPR-344 PO; -BUPR300T54 PO; +FENO145T26 PO; -GEMF600T89 PO; +MULT-1179 PO; -NICO-687 TD; +NICO-687 TOP; +OMEG1CAP PO; -TRAZ-219 PO; +TRAZ-256 PO; +folic acid tablet PO; +thiamine tablet PO
[2019-12-23 13:43] VITALS: BP 121/59
[2019-12-23] MEDS ORDERED: ketorolac trometh inj. 60 MG/2 ML VIAL IM ONE (13:55)
== END 2019-12-23 14:16 | disposition home or self-care (01) ==
LOC: ER 13:21
DX: S39.012A Strain of muscle, fascia and tendon of lower back, initial encounter (principal); G43.909 Migraine, unspecified, not intractable, without status migrainosus; E78.00 Pure hypercholesterolemia, unspecified; G47.30 Sleep apnea, unspecified; M62.830 Muscle spasm of back; G89.29 Other chronic pain; F41.9 Anxiety disorder, unspecified; F32.9 Major depressive disorder, single episode, unspecified; Z90.710 Acquired absence of both cervix and uterus; Z87.11 Personal history of peptic ulcer disease; Z56.0 Unemployment, unspecified; Z88.8 Allergy status to other drugs, medicaments and biological substances; Z79.899 Other long term (current) drug therapy; Z96.653 Presence of artificial knee joint, bilateral; W18.09XA Striking against other object with subsequent fall, initial encounter; Y93.89 Activity, other specified; Y92.89 Other specified places as the place of occurrence of the external cause; Y99.8 Other external cause status
CPT/HCPCS: 96372; 99283; J1885

== ENCOUNTER 2020-03-25 13:38 | Observation (INO) | payer MEDICAID ==
[~2020-03-25] VITALS: Ht 162.6 cm; Wt 100.0 kg
[2020-03-25 14:30] LABS: BASOPHILS % (AUTO) 0.2 % (0-1); EOSINOPHILS # (AUTO) 0.2 X10'3 (0-0.9); EOSINOPHILS % (AUTO) 2.7 % (0-6); HEMATOCRIT 36.6 % (35.0-45.0); HEMOGLOBIN 12.1 g/dl (12.0-16.0); LYMPHOCYTES # (AUTO) 1.5 X10'3 (1.1-4.8); LYMPHOCYTES % (AUTO) 19.8 % (21-51); MEAN CORPUSCULAR HGB CONC 33.2 g/dL (33.0-36.5); MEAN CORPUSCULAR VOLUME 87.4 FL (78-98); MONOCYTES # (AUTO) 0.6 X10'3 (0-0.9); NEUTROPHILS # (AUTO) 5.3 X10'3 (1.8-7.7); NEUTROPHILS % (AUTO) 69.3 % (42-75); PLATELET COUNT 254 X10'3 (140-440); RED BLOOD COUNT 4.18 X10'6 (4.20-5.60); RED CELL DISTRIBUTION WIDTH 13.2 % (11.5-14.5); WHITE BLOOD COUNT 7.7 X10'3 (4.5-11.0)
[2020-03-25] MEDS ORDERED: aspirin 81mg tab.chew PO ONE (14:35)
[2020-03-25 14:41] LABS: ALANINE AMINOTRANSFERASE 35 U/L (12-78); ALBUMIN 3.8 G/DL (3.4-5.0); ALBUMIN/GLOBULIN RATIO 1.1 (1.1-1.5); ALKALINE PHOSPHATASE 57 IU/L (46-116); ANION GAP 11 (8-16); ASPARTATE AMINO TRANSFERASE 32 U/L (10-37); BILIRUBIN,TOTAL 0.4 MG/DL (0.1-1.0); BLOOD UREA NITROGEN 10 MG/DL (7-18); BUN/CREATININE RATIO 9.6 (6.6-38.0); CALCIUM 9.1 MG/DL (8.5-10.1); CHLORIDE 104 MMOL/L (99-107); CREATININE 1.04 MG/DL (0.40-0.90); GLUCOSE 92 MG/DL (70-104); POTASSIUM 4.1 MMOL/L (3.5-5.1); SODIUM 142 MMOL/L (135-145); TOTAL PROTEIN 7.2 G/DL (6.4-8.2); eGFR 55 ML/MIN
[2020-03-25 14:51] LABS: D-DIMER 0.21 MG/L FEU (0-0.50); PARTIAL THROMBOPLASTIN TIME 30 SECONDS (22-32)
[2020-03-25] MEDS: nitroGLYCERIN 0.4mg SUBLingual tab SL PRN ×2 (15:23→15:33)
[2020-03-25] MEDS: normal saline 1000ml 1,000 ML IV SCH (16:06)
[2020-03-25] MEDS ORDERED: regadenoson 0.4mg/5ml syringe IV PRN (16:10)
[2020-03-25] MEDS ORDERED: magnesium 2GM in 50ml NS 50 ML IV PRN (16:10)
[2020-03-25] MEDS ORDERED: magnesium Cl slow-release 64mg tablet PO PRN (16:10)
[2020-03-25] MEDS ORDERED: mag hydrox/Alum hydrox/simeth 30ml oral suspension PO PRN (16:10)
[2020-03-25] MEDS ORDERED: ondansetron/PF 4mg/2ml inj IV PRN (16:10)
[2020-03-25] MEDS ORDERED: bisacodyl 10mg suppository rectal RC PRN (16:10)
[2020-03-25] MEDS ORDERED: potassium Cl 20 mEq SR tablet PO PRN ×2 (16:10)
[2020-03-25] MEDS ORDERED: metoclopramide 5 mg/ml inj IV PRN (16:10)
[2020-03-25] MEDS ORDERED: metoprolol tartrate 1mg/ml inj IV PRN (16:10)
[2020-03-25] MEDS ORDERED: potassium CL 10mEq/100ml bag 100 ML IV PRN ×2 (16:10)
[2020-03-25] MEDS ORDERED: morphine 2 MG/ML inj. syringe IV PRN (16:10)
[2020-03-25] MEDS ORDERED: magnesium 4gm in 100ml NS 100 ML IV PRN (16:10)
[2020-03-25] MEDS ORDERED: magnesium hydroxide 30ml (MOM) UD suspension PO PRN (16:10)
[2020-03-25] MEDS ORDERED: aminophylline 250mg/10ml inj. IV PRN (16:10)
[2020-03-25] MEDS ORDERED: acetaminophen 325mg tablet PO PRN ×2 (16:10)
[2020-03-25] MEDS ORDERED: nitroGLYCERIN 0.4mg SUBLingual tab SL PRN (16:10)
--- NOTE | 2020-03-25 16:27 | NUR ---
PER [facility] [facility] TECH, SHE WILL DO THE STRESS TEST TOMMORROW AM. DR. CORONADO AT BEDSIDE FOR ADMIT.
[2020-03-25 16:33] LABS: HEMOGLOBIN A1C 5.3 % (4.5-6.2)
[2020-03-25] MEDS: morphine 2 MG/ML inj. syringe IV PRN ×2 (17:11→21:36)
[2020-03-25] MEDS ORDERED: nicotine 14mg patch - 24hr TD SCH (17:20)
[2020-03-25 18:00] VITALS: BP 123/68
[2020-03-25 18:21] VITALS: BP 127/62
--- NOTE | 2020-03-25 18:28 | NUR ---
Patient in room PCU 3020. I have received report from sonja ARMAS and had the opportunity to ask questions and assume patient care.
[2020-03-25] MEDS: K and/or MAG REPLACEMENT MC SCH (20:00)
[2020-03-25] MEDS ORDERED: temazepam 15mg capsule PO PRN (21:00)
[2020-03-25 22:00] VITALS: BP 112/50
[2020-03-26] VITALS (11 sets, daily range): BP systolic 101–132; BP diastolic 54–91
[2020-03-26] MEDS: ketorolac trometh. 30mg/ml inj. IV PRN ×2 (00:08→07:47)
[2020-03-26 03:28] LABS: BASOPHILS % (AUTO) 0.5 % (0-1); EOSINOPHILS # (AUTO) 0.1 X10'3 (0-0.9); EOSINOPHILS % (AUTO) 1.3 % (0-6); HEMATOCRIT 34.3 % (35.0-45.0); HEMOGLOBIN 11.4 g/dl (12.0-16.0); LYMPHOCYTES # (AUTO) 1.1 X10'3 (1.1-4.8); MEAN CORPUSCULAR HEMOGLOBIN 29.1 PG (27.0-31.0); MEAN CORPUSCULAR HGB CONC 33.2 g/dL (33.0-36.5); MEAN CORPUSCULAR VOLUME 87.8 FL (78-98); MONOCYTES # (AUTO) 0.6 X10'3 (0-0.9); NEUTROPHILS # (AUTO) 4.7 X10'3 (1.8-7.7); NEUTROPHILS % (AUTO) 72.2 % (42-75); PLATELET COUNT 228 X10'3 (140-440); RED BLOOD COUNT 3.91 X10'6 (4.20-5.60); RED CELL DISTRIBUTION WIDTH 12.9 % (11.5-14.5); WHITE BLOOD COUNT 6.5 X10'3 (4.5-11.0)
[2020-03-26 03:36] LABS: ALBUMIN 3.4 G/DL (3.4-5.0); ANION GAP 6 (8-16); BLOOD UREA NITROGEN 7 MG/DL (7-18); BUN/CREATININE RATIO 7.5 (6.6-38.0); CALCIUM 8.7 MG/DL (8.5-10.1); CHLORIDE 104 MMOL/L (99-107); CHOL/HDL RATIO 3.6 (0.00-4.99); CHOLESTEROL 149 MG/DL (0-200); CREATININE 0.93 MG/DL (0.40-0.90); GLUCOSE 101 MG/DL (70-104); HDL CHOLESTEROL 41 MG/DL (35-60); LDL CHOLESTEROL 85 MG/DL (50-100); MAGNESIUM 1.7 MG/DL (1.5-2.4); PHOSPHORUS 4.4 MG/DL (2.3-4.5); POTASSIUM 3.6 MMOL/L (3.5-5.1); SODIUM 138 MMOL/L (135-145); TOTAL CARBON DIOXIDE 28.1 MMOL/L (24-32); TRIGLYCERIDES 104 MG/DL (20-135); eGFR 63 ML/MIN
[2020-03-26] MEDS: normal saline 1000ml 1,000 ML IV SCH (03:37)
--- NOTE | 2020-03-26 06:14 | NUR ---
Problems reprioritized. Patient report given, questions answered & plan of care reviewed with Daisha ARMAS.
--- NOTE | 2020-03-26 06:24 | NUR ---
Patient in room PCU 3020. I have received report from CHANDA Quintana and had the opportunity to ask questions and assume patient care.
[2020-03-26] MEDS: K and/or MAG REPLACEMENT MC SCH (07:56)
[2020-03-26] MEDS ORDERED: enoxaparin 40mg/0.4ml syringe SQ SCH (08:00)
[2020-03-26] MEDS ORDERED: aspirin 325mg tablet PO SCH (08:30)
--- NOTE | 2020-03-26 12:04 | NUR ---
New orders from Rusu for a CTA with contrast to r/o PE
--- NOTE | 2020-03-26 12:13 | NUR ---
PAGER ID: [phone] MESSAGE: [id number]: Betsey Damon: CTA with contrast, correct? CT states pts not able to eat if getting contrast. Kindly advise -Daisha [id number]
[2020-03-26] MEDS ORDERED: iohexol 350MG/ML 100ml bottle IV ONE (12:36)
--- NOTE | 2020-03-26 14:48 | NUR ---
PAGER ID: [phone] MESSAGE: [id number] Betsey Damon: CTA -No evidence of P.E. Bibasilar changes due to scarring/atelectasis. No infiltrates/pleural eff -Daisha [phone]
--- NOTE | 2020-03-26 16:14 | NUR ---
PT stable for discharge per MD. Reviewed discharge instructions with pt and answered any questions or concerns pt may have. Tele monitor removed. PIV removed, cannula intact. Belongings sent with pt. Medications sent to [facility] in [place]. Pt wheeled to lobby by aide and picked up by in private vehicle.
== END 2020-03-26 16:14 | disposition home or self-care (01) ==
LOC: ER 13:38 → ED HOLD 16:06 → PCU 3S 17:26
PROVIDERS: ADMIT Family Medicine; ATTEND Internal Medicine
DX: R07.89 Other chest pain (principal); E06.3 Autoimmune thyroiditis; F41.9 Anxiety disorder, unspecified; F32.9 Major depressive disorder, single episode, unspecified; E78.5 Hyperlipidemia, unspecified; G47.30 Sleep apnea, unspecified; E78.00 Pure hypercholesterolemia, unspecified; M19.90 Unspecified osteoarthritis, unspecified site; G89.29 Other chronic pain; M54.9 Dorsalgia, unspecified; F17.200 Nicotine dependence, unspecified, uncomplicated; Z85.41 Personal history of malignant neoplasm of cervix uteri; Z87.11 Personal history of peptic ulcer disease; Z90.711 Acquired absence of uterus with remaining cervical stump; Z96.653 Presence of artificial knee joint, bilateral; Z96.643 Presence of artificial hip joint, bilateral; Z79.899 Other long term (current) drug therapy; Z91.018 Allergy to other foods; Z88.6 Allergy status to analgesic agent; Z88.8 Allergy status to other drugs, medicaments and biological substances
CPT/HCPCS: 36415; 71045; 71275; 78452; 80048; 80053; 80061; 83036; 83735; 83880; 84100; 84484; 85025; 85379; 85610; 85730; 87081; 93005; 93017; 93306; 96372; 96374; 96375; 96376; 99285; A9500; G0378; J1885; J2270; J2785; J7030; Q9967; J1650

== ENCOUNTER 2021-11-05 10:58 | Emergency (ER) | payer MEDICAID ==
[~2021-11-05] VITALS: Ht 162.6 cm; Wt 85.0 kg
[~2021-11-05 10:58] MED LIST changes: -MULT-1179 PO; +MULT-25 PO; -OMEG1CAP PO; +OMEG1CAP61 PO; -PANT40TA4 PO; +PANT40TA54 PO
[2021-11-05 11:16] VITALS: BP 156/78
[2021-11-05] MEDS ORDERED: ondansetron 4mg rapidly disintigrating tab PO ONE (13:05)
[2021-11-05] MEDS ORDERED: HYDROcodone/acetaminophen 5mg/325mg tablet PO ONE (13:05)
[2021-11-05] MEDS ORDERED: ACET-1025 PO (13:41)
[2021-11-05] MEDS ORDERED: ONDA4TAB6 PO (14:19)
[2021-11-05] MEDS ORDERED: HYDR-3965 PO (14:19)
== END 2021-11-05 14:29 | disposition home or self-care (01) ==
LOC: ER 10:58
DX: M79.641 Pain in right hand (principal); M79.644 Pain in right finger(s); G43.909 Migraine, unspecified, not intractable, without status migrainosus; E78.00 Pure hypercholesterolemia, unspecified; M19.90 Unspecified osteoarthritis, unspecified site; G89.29 Other chronic pain; F41.9 Anxiety disorder, unspecified; F32.9 Major depressive disorder, single episode, unspecified; Z87.11 Personal history of peptic ulcer disease; Z90.710 Acquired absence of both cervix and uterus; Z98.890 Other specified postprocedural states; Z56.0 Unemployment, unspecified; Z88.6 Allergy status to analgesic agent; Z88.8 Allergy status to other drugs, medicaments and biological substances; Z79.899 Other long term (current) drug therapy
CPT/HCPCS: 73130; 99283

== ENCOUNTER 2022-01-13 20:32 | Emergency (ER) | payer MEDICAID ==
[~2022-01-13] VITALS: Ht 162.6 cm; Wt 90.0 kg
[~2022-01-13 20:32] MED LIST changes: +LURA40TA2 PO; -LURA40TA3 PO; +ONDA4TAB6 PO
[2022-01-13 20:50] VITALS: BP 125/71
[2022-01-13] MEDS ORDERED: cyclobenzaprine 10mg tablet PO ONE (21:45)
[2022-01-13] MEDS ORDERED: ketorolac trometh. 30mg/ml inj. IM ONE (21:45)
[2022-01-13] MEDS ORDERED: LIDOcaine 5% patch TP ONE (21:45)
== END 2022-01-13 22:15 | disposition home or self-care (01) ==
LOC: ER 20:33
DX: S39.012A Strain of muscle, fascia and tendon of lower back, initial encounter (principal); M54.89 Other dorsalgia; M62.838 Other muscle spasm; G43.909 Migraine, unspecified, not intractable, without status migrainosus; E78.00 Pure hypercholesterolemia, unspecified; M19.90 Unspecified osteoarthritis, unspecified site; G89.29 Other chronic pain; F41.9 Anxiety disorder, unspecified; F32.A Depression, unspecified; Z87.11 Personal history of peptic ulcer disease; Z90.710 Acquired absence of both cervix and uterus; Z98.890 Other specified postprocedural states; Z56.0 Unemployment, unspecified; Z88.6 Allergy status to analgesic agent; Z88.8 Allergy status to other drugs, medicaments and biological substances; Z79.899 Other long term (current) drug therapy; W50.2XXA Accidental twist by another person, initial encounter; Y93.89 Activity, other specified; Y92.89 Other specified places as the place of occurrence of the external cause; Y99.8 Other external cause status
CPT/HCPCS: 96372; 99283; J1885

== ENCOUNTER 2022-02-25 18:02 | Emergency (ER) | payer MEDICAID ==
[~2022-02-25] VITALS: Ht 162.6 cm; Wt 89.5 kg
[2022-02-25 18:12] VITALS: BP 133/95
[2022-02-25] MEDS ORDERED: ALBU8HFA PO (19:34)
[2022-02-25] MEDS ORDERED: AMOX-117 PO (19:34)
[2022-02-25] MEDS ORDERED: SODI30SP3 BOTHNARES (19:34)
[2022-02-25] MEDS ORDERED: amox tr/potassium clavulanate 875/125mg TAB PO ONE (19:35)
[2022-02-25] MEDS ORDERED: acetaminophen/codeine 120mg/12mg per 5ml UD cup PO ONE (19:35)
--- NOTE | 2022-02-25 19:48 | NUR ---
po med given
== END 2022-02-25 20:00 | disposition home or self-care (01) ==
LOC: ER 18:03
DX: J06.9 Acute upper respiratory infection, unspecified (principal); R05.9 Cough, unspecified; R06.02 Shortness of breath; G43.909 Migraine, unspecified, not intractable, without status migrainosus; E78.00 Pure hypercholesterolemia, unspecified; M19.90 Unspecified osteoarthritis, unspecified site; G89.29 Other chronic pain; F41.9 Anxiety disorder, unspecified; F32.A Depression, unspecified; Z87.11 Personal history of peptic ulcer disease; Z98.890 Other specified postprocedural states; Z88.6 Allergy status to analgesic agent; Z88.8 Allergy status to other drugs, medicaments and biological substances; Z79.2 Long term (current) use of antibiotics; Z79.899 Other long term (current) drug therapy
CPT/HCPCS: 71045; 99283

== ENCOUNTER 2022-08-02 14:27 | Outpatient (CLI) | payer MEDICAID ==
[~2022-08-02 14:27] MED LIST changes: +SODI30SP3 BOTHNARES
== END 2022-08-02 23:59 | disposition home or self-care (01) ==
LOC: VAS 14:27
PROVIDERS: ATTEND Podiatrist Foot & Ankle Surgery
DX: R22.41 Localized swelling, mass and lump, right lower limb (principal); M20.11 Hallux valgus (acquired), right foot; M79.671 Pain in right foot
CPT/HCPCS: 93971

== ENCOUNTER 2022-08-04 12:00 | Emergency (ER) | payer MEDICAID ==
[~2022-08-04] VITALS: Ht 162.6 cm; Wt 100.0 kg
[2022-08-04 13:37] LABS: BASOPHILS % (AUTO) 0.7 % (0-1); EOSINOPHILS # (AUTO) 0.2 X10'3 (0-0.9); EOSINOPHILS % (AUTO) 2.5 % (0-6); HEMATOCRIT 37.4 % (35.0-45.0); HEMOGLOBIN 12.5 g/dl (12.0-16.0); LYMPHOCYTES # (AUTO) 1.4 X10'3 (1.1-4.8); LYMPHOCYTES % (AUTO) 21.3 % (21-51); MEAN CORPUSCULAR HEMOGLOBIN 29.2 PG (27.0-31.0); MEAN CORPUSCULAR HGB CONC 33.3 g/dL (33.0-36.5); MEAN CORPUSCULAR VOLUME 87.5 FL (78-98); MEAN PLATELET VOLUME 7.1 FL (7.4-10.4); MONOCYTES # (AUTO) 0.4 X10'3 (0-0.9); MONOCYTES % (AUTO) 5.9 % (2-12); NEUTROPHILS # (AUTO) 4.6 X10'3 (1.8-7.7); NEUTROPHILS % (AUTO) 69.6 % (42-75); PLATELET COUNT 305 X10'3 (140-440); RED BLOOD COUNT 4.27 X10'6 (4.20-5.60); RED CELL DISTRIBUTION WIDTH 13.5 % (11.5-14.5); WHITE BLOOD COUNT 6.6 X10'3 (4.5-11.0)
[2022-08-04 13:51] LABS: APTT 28 SECONDS (22-32); D-DIMER 1.09 MG/L FEU (0-0.50)
[2022-08-04 13:54] LABS: ALANINE AMINOTRANSFERASE 38 U/L (12-78); ALBUMIN 3.9 G/DL (3.4-5.0); ALBUMIN/GLOBULIN RATIO 1.1 (1.1-1.5); ALKALINE PHOSPHATASE 70 IU/L (46-116); ANION GAP 12 (8-16); ASPARTATE AMINO TRANSFERASE 36 U/L (10-37); BILIRUBIN,TOTAL 0.3 MG/DL (0.1-1.0); BLOOD UREA NITROGEN 6 MG/DL (7-18); BUN/CREATININE RATIO 8.3 (6.6-38.0); CALCIUM 9.6 MG/DL (8.5-10.1); CHLORIDE 102 MMOL/L (99-107); CREATININE 0.72 MG/DL (0.40-0.90); GLUCOSE 87 MG/DL (70-104); SODIUM 140 MMOL/L (135-145); TOTAL PROTEIN 7.5 G/DL (6.4-8.2); eGFR 83 ML/MIN
[2022-08-04] MEDS ORDERED: HYDROcodone/acetaminophen 10/325mg tab PO ONE (15:00)
[2022-08-04] MEDS ORDERED: HYDR-3965 PO (15:25)
[2022-08-04 15:46] VITALS: BP 128/75
== END 2022-08-04 15:49 | disposition home or self-care (01) ==
LOC: ER 12:01
DX: R60.0 Localized edema (principal); E78.00 Pure hypercholesterolemia, unspecified; F31.9 Bipolar disorder, unspecified; Z88.8 Allergy status to other drugs, medicaments and biological substances; Z88.6 Allergy status to analgesic agent; Z79.899 Other long term (current) drug therapy
CPT/HCPCS: 36415; 80053; 83880; 85025; 85379; 85610; 85730; 99284

== ENCOUNTER 2024-01-21 20:05 | Emergency (ER) | payer BC, MEDICAID ==
[~2024-01-21] VITALS: Ht 162.6 cm; Wt 83.0 kg
[2024-01-21] MEDS: acetaminophen 325mg tablet PO ONE (21:41)
[2024-01-21 22:11] LABS: EOSINOPHILS # (AUTO) 0.2 X10'3 (0-0.9); HEMATOCRIT 39.7 % (35.0-45.0); HEMOGLOBIN 13.6 g/dl (12.0-16.0); MEAN CORPUSCULAR HEMOGLOBIN 30.6 PG (27.0-31.0); RED BLOOD COUNT 4.45 X10'6 (4.20-5.60)
[2024-01-21 22:12] LABS: BASOPHILS % (AUTO) 0.6 % (0-1); EOSINOPHILS % (AUTO) 3.9 % (0-6); LYMPHOCYTES # (AUTO) 1.5 X10'3 (1.1-4.8); LYMPHOCYTES % (AUTO) 32.9 % (21-51); MEAN CORPUSCULAR HGB CONC 34.3 g/dL (33.0-36.5); MEAN CORPUSCULAR VOLUME 89.2 FL (78-98); MONOCYTES # (AUTO) 0.3 X10'3 (0-0.9); MONOCYTES % (AUTO) 5.4 % (2-12); NEUTROPHILS # (AUTO) 2.7 X10'3 (1.8-7.7); NEUTROPHILS % (AUTO) 57.2 % (42-75); PLATELET COUNT 234 X10'3 (140-440); WHITE BLOOD COUNT 4.7 X10'3 (4.5-11.0)
[2024-01-21 22:23] LABS: BILIRUBIN,URINE NEGATIVE (Neg); CLARITY,URINE CLEAR (Clear); COLOR,URINE YELLOW (Yellow); GLUCOSE, URINE NEGATIVE (Neg); KETONES,URINE NEGATIVE (Neg); LEUKOCYTE ESTERASE ,URINE NEGATIVE (Neg); NITRITES, URINE NEGATIVE (Neg); OCCULT BLOOD,URINE TRACE-INTACT (Neg); PH,URINE 6.5 (4.8-8.0); PROTEIN,URINE NEGATIVE (Neg); UROBILINOGEN,URINE 0.2 E.U/dL (0.2-1.0)
[2024-01-21 22:23] LABS: ALBUMIN 3.5 G/DL (3.4-5.0); ANION GAP 10 (8-16); BLOOD UREA NITROGEN 11 MG/DL (7-18); BUN/CREATININE RATIO 15.3 (10.0-20.0); CALCIUM 8.1 MG/DL (8.5-10.1); CHLORIDE 108 MMOL/L (99-107); CREATININE 0.72 MG/DL (0.40-0.90); GLUCOSE 103 MG/DL (70-104); POTASSIUM 3.7 MMOL/L (3.5-5.1); SODIUM 147 MMOL/L (135-145); TOTAL CARBON DIOXIDE 29.1 MMOL/L (24-32); eCRCL 73 ML/MIN; eGFR 83 ML/MIN
[2024-01-21 22:29] LABS: ETHANOL 360 MG/DL (<10)
[2024-01-21 22:29] LABS: URINE AMPHETAMINE SCREEN NEGATIVE (Neg); URINE BARBITUATE SCREEN NEGATIVE (Neg); URINE BENZODIAZEPINES SCREEN NEGATIVE (Neg); URINE CANNABINOID SCREEN NEGATIVE (Neg); URINE COCAINE SCREEN NEGATIVE (Neg); URINE METHADONE SCREEN NEGATIVE (Neg); URINE OPIATE SCREEN NEGATIVE (Neg); URINE PHENCYCLIDINE SCREEN NEGATIVE (Neg)
[2024-01-21 22:30] LABS: UA COLLECTION TYPE CLN CATCH MIDSTREAM
[2024-01-21 22:31] LABS: SQUAMOUS EPITHELIAL CELL,UR FEW /LPF (FEW)
[2024-01-21 22:33] LABS: HYALINE CASTS 0-3 /LPF (NEGATIVE)
[2024-01-21 22:34] LABS: BACTERIA,URINE FEW /HPF (Neg); RBC,URINE 0-2 /HPF (0-2); WBC,URINE 0-4 /HPF (0-4)
[2024-01-21 22:38] LABS: INR 1.1 INR; PROTHROMBIN TIME 11.6 SECONDS (9.0-12.0)
[2024-01-22 00:04] VITALS: TEMP 98.1
[2024-01-22 00:47] VITALS: BP 116/76
[2024-01-22 01:15] VITALS: PULSE 88; RESP 17; O2SAT 96
== END 2024-01-22 01:16 | disposition home or self-care (01) ==
LOC: ER 20:06
DX: F10.129 Alcohol abuse with intoxication, unspecified (principal); G43.909 Migraine, unspecified, not intractable, without status migrainosus; E78.00 Pure hypercholesterolemia, unspecified; M19.90 Unspecified osteoarthritis, unspecified site; M54.50 Low back pain, unspecified; R79.1 Abnormal coagulation profile; Z91.018 Allergy to other foods; Z88.6 Allergy status to analgesic agent; Z79.899 Other long term (current) drug therapy; Z79.2 Long term (current) use of antibiotics; Z90.710 Acquired absence of both cervix and uterus; W19.XXXA Unspecified fall, initial encounter; Y93.89 Activity, other specified; Y92.89 Other specified places as the place of occurrence of the external cause; Y99.8 Other external cause status; Y90.9 Presence of alcohol in blood, level not specified
CPT/HCPCS: 36415; 70450; 71045; 72125; 72131; 72192; 80048; 80305; 80320; 81001; 82948; 85025; 85610; 93005; 99285

== ENCOUNTER 2024-08-06 21:28 | Emergency (ER) | payer BC ==
[~2024-08-06] VITALS: Ht 162.6 cm; Wt 80.7 kg
[2024-08-06] MEDS ORDERED: HYDR-3965 PO (22:08)
[2024-08-06] MEDS: ondansetron 4mg rapidly disintigrating tab PO ONE (22:13)
[2024-08-06] MEDS: HYDROcodone/acetaminophen 10/325mg tab PO ONE (22:13)
[2024-08-06 22:18] VITALS: BP 138/84; PULSE 98; RESP 14; TEMP 98.6; O2SAT 99
== END 2024-08-06 22:38 | disposition home or self-care (01) ==
LOC: ER 21:29
DX: S52.502A Unspecified fracture of the lower end of left radius, initial encounter for closed fracture (principal); E78.00 Pure hypercholesterolemia, unspecified; G47.30 Sleep apnea, unspecified; G89.29 Other chronic pain; M19.90 Unspecified osteoarthritis, unspecified site; G43.909 Migraine, unspecified, not intractable, without status migrainosus; Z91.018 Allergy to other foods; Z88.6 Allergy status to analgesic agent; Z79.899 Other long term (current) drug therapy; Z88.8 Allergy status to other drugs, medicaments and biological substances; Z87.11 Personal history of peptic ulcer disease; Z90.710 Acquired absence of both cervix and uterus; Z96.653 Presence of artificial knee joint, bilateral; W19.XXXA Unspecified fall, initial encounter; Y93.89 Activity, other specified; Y92.89 Other specified places as the place of occurrence of the external cause; Y99.8 Other external cause status
CPT/HCPCS: 29125; 73130; 99284; A6446; A6449